=== PATIENT | female | born 1965 | race Caucasian/White ===

== ENCOUNTER 2017-09-22 13:37 | Inpatient (IN) ==
--- NOTE | 2017-09-22 14:16 | Emergency Department Note ---
START Narrative - START START: I examined this patient and my medical decision-making was reviewed with the Resident Physician. I agree with the documented findings, disposition and treatment plan as described except to the extent set forth below. 52-year-old female presents emergency room for left buttock wound check. Patient had a recent diagnosis of a left buttock abscess. She had this packed 2 days ago. Has been on clindamycin. Came today for wound check. States she still having high fevers up to 102. States she feels sick and does not feel well. She is having increasing pain to this left buttock area. [place] one hour ago she is also complaining of right facial numbness involving the right cheek region. She also states her tongue did not feel normal like it used to. She denies any arm or leg involvement. No vision changes. No previous strokes or CVAs or TIA. Patient will need to have this evaluated as well. Could be secondary to the infection that she is becoming systemic. We will check lab work. We did obtain a wound culture.
[2017-09-22] MEDS ORDERED: Vancomycin 1,000 MG in D5% in Water 250 ML IVPB ONE (14:18)
[2017-09-22] MEDS ORDERED: 0.9 % Sodium Chloride 1,000 ML IVC ONE (14:18)
[2017-09-22] MEDS ORDERED: Ondansetron 4 MG/2 ML VIAL IVP ONE (14:24)
[2017-09-22] MEDS ORDERED: *HR* HYDROmorphone (PF) 1 MG/ML SYRINGE IVP ONE (14:24)
[2017-09-22 14:33] LABS: Basophils # 0.1 K/mcL (0.0-0.2); Basophils % 0.3 %; Eosinophils # 0.1 K/mcL (0.0-0.6); Eosinophils % 0.3 %; Hematocrit 40.3 % (35.3-44.9); Hemoglobin 13.6 g/dL (11.5-15.4); Immature Granulocytes % 0.7 % (0-4); Lymphocytes # 2.5 K/mcL (0.6-4.6); Lymphocytes % 16.6 %; Mean Corpuscular HGB Conc 33.7 g/dL (31.6-35.5); Mean Corpuscular Volume 91.8 fL (83.0-100.0); Mean Platelet Volume 10.1 fL (9.4-12.4); Monocytes # 0.9 K/mcL (0.0-1.3); Monocytes % 5.8 %; Neutrophils # 11.6 K/mcL (1.6-8.9); Platelet Count 174 K/mcL (140-400); Red Blood Count 4.39 M/mcL (3.82-4.97); Red Cell Distribution Width 13.2 % (11.5-14.5); Segmented Neutrophils % 76.3 %
--- NOTE | 2017-09-22 14:37 | Emergency Department Note ---
Disposition Clinical Impression: Cellulitis and abscess of buttock Disposition: Admitted As Inpatient Wound/Laceration HPI - General Chief Complaint: ED Neuro Symptoms/Deficit Stated Complaint: Multiple complaints Time Seen by Provider: 09/22/17 13:50 Source: patient Mode of arrival: ambulatory Limitations: no limitations Nursing Notes Reviewed: Yes Vital Signs Reviewed: Yes - History of Present Illness HPI Narrative: 52-year-old female with complaint of an abscess, that has not healed despite antibiotics, she has been on clindamycin for about 5 days, and she is still has worsening pain, she states of abscess was packed in the emergency department of [facility] symptoms and she has had fevers, temperatures 101 at home, worsening pain, abscess is intact but still draining lots of fluid, causing her difficulty sitting down and doing daily activities, when she sits down she has 8 out of 10 pain. Patient also states that on her way in to be evaluated she had some transient paresthesias in her left face. Patient denies any focal weakness, slurred speech or gait difficulties Location: back, other (Left buttocks) 1 - Abscess Place: home Patient Tetanus UTD: Yes Mechanism: other Pain Severity: moderate Pain Scale: 7 Treatments prior to arrival: bandage, other (Incision and drainage and packing) - Related Data Home Medications Medication Instructions Recorded Confirmed DULoxetine [Cymbalta] 60 mg PO DAILY 05/23/16 09/22/17 Gabapentin [Neurontin] 800 mg PO QID 05/23/16 09/22/17 Lisinopril [Zestril] 40 mg PO DAILY 05/23/16 09/22/17 OxyCODONE Immed Rel [Roxicodone 5 10 mg PO Q6HR PRN 05/23/16 09/22/17 MG] TraZODone 200 mg PO HS 05/23/16 09/22/17 hydroCHLOROthiazide 25 mg PO DAILY 05/23/16 09/22/17 [Hydrochlorothiazide] Oxycodone Myristate [Xtampza ER] 18 mg PO BID 09/22/17 09/22/17 lamoTRIgine [Lamictal] 100 mg PO HS 09/22/17 09/22/17 Allergies Allergy/AdvReac Type Severity Reaction Status Date / Time No Known Allergies Allergy Verified 05/23/16 03:51 All systems ED: reviewed and negative except as stated. Review of Systems: As Per HPI Constitutional: Reports: fever, chills Eyes: Denies: eye pain, eye discharge ENT ED: Denies: ear pain, throat pain Cardiovascular: Denies: chest pain, palpitations Respiratory: Denies: cough, dyspnea Gastrointestinal: Denies: abdominal pain Genitourinary: Denies: urgency, dysuria Musculoskeletal: Denies: back pain Integumentary: Reports: as per HPI, rash, lesions Neurological: Denies: headache, weakness Psychiatric: Denies: anxiety Endocrine: Denies: fatigue Past Medical History - Past Medical History Attestation: Yes The following information was validated with the patient. Source: patient Medical history: Reports: non-contributory, hypertension Surgical history: Reports: other, hysterectomy Psychiatric history: Reports: anxiety - Social History Smoking Status: Current every day smoker Smokeless Tobacco Status: No Alcohol use: Reports: none Drug use: Reports: none Physical Exam - General Limitations: no limitations General appearance: alert, in no apparent distress - Head Head exam: atraumatic - Eye Eye exam: Present: normal appearance, PERRL - ENT ENT exam: normal exam - Neck Neck exam: Present: normal inspection - Chest Chest inspection: Present: normal inspection, symmetric chest wall rise - Respiratory Respiratory exam: Present: normal lung sounds bilaterally - Cardiovascular Cardiovascular exam: Present: regular rate, normal rhythm - Abdominal Exam Abdominal exam: Present: soft. Absent: Non-Tender Course Course Narrative: 52-year-old female with right buttocks abscess, this was expressed, she also has surrounding cellulitis and concern for worsening infection given that she failed outpatient clindamycin, the plan will be for likely admission for IV antibiotics to vancomycin IV, wound cultures and blood cultures sent - Reevaluation(s) Reevaluation #1: Patient with leukocytosis. Evidence of cellulitis and abscess, started empirically on clindamycin IV admitted to the hospital service Dr. Pantoja Vital Signs Temperature 99.1 F 09/22/17 13:47 Pulse Rate 81 09/22/17 13:47 Respiratory Rate 16 09/22/17 13:47 Blood Pressure 140/83 09/22/17 13:47 O2 Sat by Pulse Oximetry 98 09/22/17 13:47 Temperature 98.9 F 09/22/17 17:15 Pulse Rate 63 09/22/17 17:15 Respiratory Rate 14 09/22/17 17:15 Blood Pressure 122/72 09/22/17 17:15 O2 Sat by Pulse Oximetry 97 09/22/17 17:15 Oxygen Delivery Oxygen Delivery Room Air Wound/Laceration - Differential Diagnosis Differential Diagnosis: Likely: abscess - Medical Records Medical records reviewed: Yes I reviewed the patient's medical records. - Lab Data Lab results reviewed: Yes I reviewed the patient's lab results. Result diagrams: 09/22/17 14:27 09/22/17 14:27 Lab Results 09/22/17 09/22/17 09/22/17 Range/Units 14:00 14:27 14:27 WBC 15.3 H (4.3-11.1) K/mcL RBC 4.39 (3.82-4.97) M/mcL Hgb 13.6 (11.5-15.4) g/dL Hct 40.3 (35.3-44.9) % MCV 91.8 (83.0-100.0) fL MCH 31.0 (28.0-33.3) pg MCHC 33.7 (31.6-35.5) g/dL RDW 13.2 (11.5-14.5) % Plt Count 174 (140-400) K/mcL MPV 10.1 (9.4-12.4) fL Immature Gran % 0.7 (0-4) % Seg Neutrophils % 76.3 % Lymphocytes % 16.6 % Monocytes % 5.8 % Eosinophils % 0.3 % Basophils % 0.3 % Neutrophils # 11.6 H (1.6-8.9) K/mcL Lymphocytes # 2.5 (0.6-4.6) K/mcL Monocytes # 0.9 (0.0-1.3) K/mcL Eosinophils # 0.1 (0.0-0.6) K/mcL Basophils # 0.1 (0.0-0.2) K/mcL Sodium 136 (136-145) mEq/L Potassium 3.8 (3.5-5.1) mEq/L Chloride 104 (98-107) mEq/L Carbon Dioxide 29 (23-29) mEq/L BUN 12 (6-20) mg/dL Creatinine 0.67 (0.60-1.20) mg/dL Est GFR ( Amer) > 60 (> 60) Est GFR (Non-Af Amer) > 60 (> 60) BUN/Creatinine Ratio 18 (6-26) Glucose 105 (70-105) mg/dL POC Glucose 111 H (58-89) Calculated Osmolality 282 (280-300) Lactic Acid (0.5-2.2) mmol/L Calcium 9.0 (8.6-10.3) mg/dL 09/22/17 Range/Units 14:27 WBC (4.3-11.1) K/mcL RBC (3.82-4.97) M/mcL Hgb (11.5-15.4) g/dL Hct (35.3-44.9) % MCV (83.0-100.0) fL MCH (28.0-33.3) pg MCHC (31.6-35.5) g/dL RDW (11.5-14.5) % Plt Count (140-400) K/mcL MPV (9.4-12.4) fL Immature Gran % (0-4) % Seg Neutrophils % % Lymphocytes % % Monocytes % % Eosinophils % % Basophils % % Neutrophils # (1.6-8.9) K/mcL Lymphocytes # (0.6-4.6) K/mcL Monocytes # (0.0-1.3) K/mcL Eosinophils # (0.0-0.6) K/mcL Basophils # (0.0-0.2) K/mcL Sodium (136-145) mEq/L Potassium (3.5-5.1) mEq/L Chloride (98-107) mEq/L Carbon Dioxide (23-29) mEq/L BUN (6-20) mg/dL Creatinine (0.60-1.20) mg/dL Est GFR ( Amer) (> 60) Est GFR (Non-Af Amer) (> 60) BUN/Creatinine Ratio (6-26) Glucose (70-105) mg/dL POC Glucose (58-89) Calculated Osmolality (280-300) Lactic Acid 1.0 (0.5-2.2) mmol/L Calcium (8.6-10.3) mg/dL - Radiology Data Radiology results reviewed: Yes I reviewed the patient's radiology results. Head CT 09/22/17 14:17 IMPRESSION: No acute abnormality of the head. D/ / Tobi Avila MD / Tobi Avila MD Interpreting Provider: Tobi Avila MD
[2017-09-22 14:51] LABS: BUN/Creatinine Ratio 18 (6-26); Blood Urea Nitrogen 12 mg/dL (6-20); Carbon Dioxide 29 mEq/L (23-29); Chloride 104 mEq/L (98-107); Glucose 105 mg/dL (70-105); Osmolality,Calculated 282 (280-300); Potassium 3.8 mEq/L (3.5-5.1); Sodium 136 mEq/L (136-145); eGFR For African Americans > 60 (> 60); eGFR For Non-African Americans > 60 (> 60)
[2017-09-22] MEDS ORDERED: Ondansetron 4 MG/2 ML VIAL IVP PRN (18:04)
[2017-09-22] MEDS ORDERED: Ibuprofen 400 MG TABLET PO PRN (18:04)
[2017-09-22] MEDS ORDERED: Acetaminophen 325 MG TABLET PO PRN (18:04)
[2017-09-22] MEDS ORDERED: Naloxone 0.4 MG/ML INJ IVP PRN (18:04)
--- NOTE | 2017-09-22 18:49 | Internal Med History&Physical ---
Date of Encounter: 09/22/17 Time of Encounter: 17:30 Assessment and Plan (1) Cellulitis and abscess of buttock Current visit: Yes Status: Acute Acute cellulitis and abscess of the left buttock that pt. states was diagnosed two days ago at [facility]. Wound is painful to palpation and currently draining purulent fluid. Area looks cellulitic and erythematous. Pt. states she is currently sexually active and would like STD testing. Wound Care consult ordered with daily wound care. Surgery consult ordered and discussed w/Dr. Madsen for possible draining and I appreciate the consult. Blood cultures x2. Wound culture. Gonorrhea, chlamydia, and herpes testing ordered. IVPB vancomycin w/ pharmacy dosing and Zosyn 3.375 gm Q8 for infection coverage. Pt. discussed w/ Dr. Pantoja who is in agreement w/plan of care. Pt. is high risk for further infection and morbidity based on current sx, previous occurrences, current leukocytosis and draining abscess. Inpatient. (2) Right facial numbness Current visit: Yes Status: Acute Pt. reports acute right-sided facial numbness that started several hours ago. Pinpoint test reveals reduced feeling in right cheek down to right corner of mouth. Pt. states reduced feeling on right side of tongue. Denies hx of CVA, TIA , seizures, previous occurrence. CT of the head today shows no acute intracranial abnormality. No facial droop or focal deficits. No speech slurring or ataxia on exam. MRI of head/brain wo contrast to r/o infarct/ischemia. NIHSS modified scale. dysphagia screen. Neuro checks Q2HR. Consider neuro consult based on MRI results. NPO until dysphagia screen passed. (3) HTN (hypertension) Current visit: Yes Status: Chronic Hx of chronic HTN. Monitor pt. and VS. Continue patient's hydrochlorothiazide. Qualifiers: Hypertension type: essential hypertension Qualified Code(s): I10 - Essential (primary) hypertension (4) Anxiety Current visit: Yes Status: Chronic Hx of chronic anxiety. Continue pts. Cymbalta and Lamictal. (5) Chronic pain Current visit: Yes Status: Chronic Hx of chronic pain in feet, hips, and back. Pt. takes Xtampza, Neurontin, Roxycodone and trazodone and states she is seen at a pain clinic for medications. Urine tox screen ordered. Qualifiers: Chronic pain type: other chronic pain Qualified Code(s): G89.29 - Other chronic pain (6) Tobacco abuse Current visit: Yes Status: Chronic Hx of chronic tobacco abuse. Pt. reports smoking 1 PPD and has no current intent to quit d/t anxiety. (7) DVT prophylaxis Current visit: Yes Status: Acute Lovenox 40 mg 0600 for DVT prophylaxis. Monitor pt. for signs of bleeding. Internal Medicine - H&P: HPI Chief complaint: Sore on left buttock Admitted From: Emergency Dept Plans for Post Hospital Care: Home History of present illness: Ms. Butler is a 52 year old female with medical hx of HTN presents from the ED with chief complaint of painful sore on the left buttock that has been present for the past two days. Patient states that she was seen at [facility] in [place] two days ago. Pt. states that she has been running a fever since and that the wound has become more painful over the past day and has been draining thick fluid. Pt. states that she has had the same abscesses on her bilateral calves and left axilla previously. Pt reports she is sexually active with one person. Pt. reports right facial numbness for the past several hours primarily right cheek and right side of tongue and diarrhea. Pt. denies recent illness, chills, nausea, vomiting, chest pain, palpitations, changes in vision, dizziness, lightheadedness, abdominal pain, unusual bleeding, pre-syncope, or syncope. Past Med Surg Social Fam HX - Past Medical History Medical history: hypertension Psychiatric history: anxiety - Past Surgical History Surgical History: other, hysterectomy - Social History Smoking Status: Current every day smoker Packs per day: 1 PPD Smokeless Tobacco Status: No Alcohol use: none Drug use: none Current living situation: Home Activity Level: Independent ambulation Recent Out of Country Travel Within the Last 8 Weeks: No Exposure or Possible Exposure to Illness During Travel: No - Family History Father Race: Family Member Ethnicity: Non- Living Status: Age at : 63 Cause of : Cancer Hx Family Cardiac Disorders: Yes (Father PR in 50's) Hx Family Cancer: Yes (Lung, lymphoma) Mother Race: Family Member Ethnicity: Non- Living Status: Still Living Hx Family Medical Disorders: No Brother Race: Family Member Ethnicity: Non- Living Status: Still Living Hx Family Medical Disorders: No Sister Race: Family Member Ethnicity: Non- Living Status: Still Living Hx Family Medical Disorders: No Internal Medicine - H&P: Meds DULoxetine [Cymbalta] 60 mg PO DAILY 05/23/16 [History] Gabapentin [Neurontin] 800 mg PO QID 05/23/16 [History] Lisinopril [Zestril] 40 mg PO DAILY 05/23/16 [History] OxyCODONE Immed Rel [Roxicodone 5 MG] 10 mg PO Q6HR PRN 05/23/16 [History] TraZODone 200 mg PO HS 05/23/16 [History] hydroCHLOROthiazide [Hydrochlorothiazide] 25 mg PO DAILY 05/23/16 [History] Oxycodone Myristate [Xtampza ER] 18 mg PO BID 09/22/17 [History] lamoTRIgine [Lamictal] 100 mg PO HS 09/22/17 [History] 3 Allergy/AdvReac Type Severity Reaction Status Date / Time No Known Allergies Allergy Verified 05/23/16 03:51 All Systems PM: A 10-system review of systems was performed and is negative for pertinent findings except as documented above in the HPI. - Constitutional Constitutional: as per HPI, fever(s), no chills, no night sweats - EENT Eyes: no change in vision, no discharge, no pain, no photophobia Ears: no ear discharge, no ear pain, no tinnitus Nose, mouth and throat: no dysphagia, no nasal discharge, no neck pain, no sore throat - Breasts Breasts: as per HPI - Cardiovascular Cardiovascular ROS IM: no chest pain, no diaphoresis, no dyspnea, no lightheadedness, no palpitations, no syncope - Respiratory Respiratory: no cough, no dyspnea, no wheezing, no excessive phlegm production - Gastrointestinal Gastrointestinal: as per HPI, diarrhea, no abdominal pain, no hematemesis, no hematochezia, no melena, no nausea, no vomiting - Genitourinary Genitourinary: other (Cellulitic abscess of the left buttock), no change in urinary stream, no dysuria, no flank pain, no hematuria Menstruation: as per HPI, post hysterectomy - Musculoskeletal Musculoskeletal ROS IM: no numbness, no tingling - Integumentary Integumentary IM: sores (Abscess on left buttock), no rash, no unusual bruising - Neurological Neurological ROS: as per HPI, numbness (Right-sided facial numbness), no confusion, no convulsions, no focal weakness, no tingling, no tremor(s) - Psychiatric Psychiatric: as per HPI, anxiety - Endocrine Endocrine IM: as per HPI - Hematologic/Lymphatic Hematologic/Lymphatic: no easy bruising - Allergic/Immunologic Allergic/Immunologic: as per HPI - Constitutional Vitals: Temp Pulse Resp BP Pulse Ox 98.9 F 63 14 122/72 97 09/22/17 17:15 09/22/17 17:15 09/22/17 17:15 09/22/17 17:15 09/22/17 17:15 General appearance: Present: cooperative, mild distress (Pain in left buttock), A&O X 3, answers questions appropriately - Head Head exam: Present: atraumatic, normocephalic - Eye Eye exam: Present: PERRL, conjuntiva pink, sclera anicteric Pupils: Present: PERRL - ENT ENT exam: Present: normal exam - Neck Neck exam general surgery: Present: normal inspection, supple, trachea midline. Absent: lymphadenopathy - Respiratory Respiratory exam: Present: CTAB. Absent: accessory muscle use, rales, rhonchi, wheezes - Cardiovascular Cardiovascular exam: Present: RRR, +S1, +S2. Absent: diastolic murmur, gallop, rubs, systolic murmur - GI/Abdominal GI/Abdominal exam: Present: normal bowel sounds, soft, no peritoneal signs. Absent: distended, tenderness - Rectal Rectal exam: Present: tenderness (Left buttock region w/open wound w/purulent drainage) - External exam: Present: erythema (Mild erythema present in groin area. Pt. states she gets sores that come and go in this area.) - Extremities Exam Extremities exam: Present: warm, radial pulses palpable and symmetrical. Absent : calf tenderness, cyanotic, pedal edema - Back Exam Back exam: Present: normal inspection - Neurological Exam Neurological exam: Present: CN II-XII intact, oriented X3, no focal deficits. Absent: pronater drift, facial droop, speech deficit - Psychiatric Psychiatric exam: Present: anxious - Skin Skin exam: Present: dry, intact Internal Med - H&P Results - Labs CBC & Chem 7: 09/22/17 14:27 09/22/17 14:27 - Diagnostic Studies CT scan - head Additional comments: Impressions Head CT 09/22/17 14:17 IMPRESSION: No acute abnormality of the head. D/ / Tobi Avila MD / Tobi Avila MD Interpreting Provider: Tobi Avila MD
[2017-09-22] MEDS ORDERED: Piperacillin/Tazobactam 3.375 GM/200 ML BAG IVPB SCH (20:00)
[2017-09-22] MEDS: traZODone 50 MG TABLET PO SCH (20:44)
[2017-09-22] MEDS: Gabapentin 400 MG CAPSULE PO SCH (20:44)
[2017-09-22] MEDS: lamoTRIgine 100 MG TABLET PO SCH (20:45)
[2017-09-22] MEDS: Patient Taking Own Medication 1 EACH PO SCH (20:46)
[2017-09-22] MEDS: *HR* OxyCODONE Immed Rel 5 MG TABLET PO PRN (20:50)
[2017-09-22] MEDS: 0.9 % Sodium Chloride 1,000 ML IVC SCH (22:39)
[2017-09-23] MEDS ORDERED: Vancomycin 1,000 MG in D5% in Water 250 ML IVPB SCH (03:00)
[2017-09-23] MEDS: Vancomycin 1,000 MG in D5% in Water 250 ML IVPB SCH ×2 (04:10→15:16)
[2017-09-23] MEDS: *HR* Enoxaparin 40 MG/0.4 ML SYRINGE SQ SCH (06:28)
[2017-09-23 07:17] LABS: Basophils % 0.4 %; Eosinophils # 0.2 K/mcL (0.0-0.6); Eosinophils % 2.5 %; Hematocrit 36.3 % (35.3-44.9); Immature Granulocytes % 0.6 % (0-4); Lymphocytes # 2.2 K/mcL (0.6-4.6); Lymphocytes % 26.9 %; Mean Corpuscular HGB Conc 32.8 g/dL (31.6-35.5); Mean Corpuscular Hemoglobin 30.1 pg (28.0-33.3); Mean Corpuscular Volume 91.9 fL (83.0-100.0); Mean Platelet Volume 10.4 fL (9.4-12.4); Monocytes # 0.5 K/mcL (0.0-1.3); Neutrophils # 5.3 K/mcL (1.6-8.9); Platelet Count 185 K/mcL (140-400); Red Blood Count 3.95 M/mcL (3.82-4.97); Red Cell Distribution Width 13.2 % (11.5-14.5); Segmented Neutrophils % 63.6 %
[2017-09-23 07:32] LABS: Alanine Aminotransferase 8 Units/L (7-52); Albumin 3.1 g/dL (3.5-5.7); Alkaline Phosphatase 60 Units/L (34-104); Aspartate Amino Transferase 11 Units/L (13-39); BUN/Creatinine Ratio 15 (6-26); Bilirubin,Total 0.6 mg/dL (0.3-1.0); Blood Urea Nitrogen 10 mg/dL (6-20); Calcium 8.5 mg/dL (8.6-10.3); Carbon Dioxide 26 mEq/L (23-29); Chloride 110 mEq/L (98-107); Chol/HDL Ratio 5.6 (0-4.9); Cholesterol 118 mg/dL (< 200); Glucose 96 mg/dL (70-105); HDL Cholesterol 21 mg/dL (40-59); LDL Cholesterol,Calculated 77 mg/dL (0-99); Magnesium 2.1 mg/dL (1.6-2.6); Osmolality,Calculated 289 (280-300); Potassium 3.5 mEq/L (3.5-5.1); Sodium 140 mEq/L (136-145); Total Protein 6.1 g/dL (6.4-8.9); Triglycerides 102 mg/dL (< 150); eGFR For African Americans > 60 (> 60); eGFR For Non-African Americans > 60 (> 60)
[2017-09-23 07:40] LABS: Hemoglobin 11.9 g/dL (11.5-15.4)
[2017-09-23] MEDS: Gabapentin 400 MG CAPSULE PO SCH ×4 (09:45→21:37)
[2017-09-23] MEDS: hydroCHLOROthiazide 25 MG TABLET PO SCH (09:48)
[2017-09-23] MEDS: Lisinopril 20 MG TABLET PO SCH (09:48)
[2017-09-23] MEDS: Patient Taking Own Medication 1 EACH PO SCH (09:49)
[2017-09-23] MEDS: *HR* OxyCODONE Immed Rel 5 MG TABLET PO PRN ×3 (09:54→21:37)
[2017-09-23] MEDS: lamoTRIgine 100 MG TABLET PO SCH ×2 (09:54→13:44)
[2017-09-23] MEDS: Piperacillin/Tazobactam 3.375 GM/200 ML BAG IVPB SCH ×2 (10:02→18:47)
--- NOTE | 2017-09-23 11:26 | Internal Med Progress Note ---
Date of Encounter: 09/23/17 Time of Encounter: 08:30 - Assessment and plan (1) Tobacco abuse Current Visit: Yes Status: Chronic Assessment and plan: Patient was counseled. Nicotine patch (2) Cellulitis and abscess of buttock Current Visit: Yes Status: Acute Assessment and plan: Status post I&D. Follow up on cultures. Continue with vancomycin and Zosyn. Surgery has been consulted. Continue with pain control. (3) HTN (hypertension) Current Visit: Yes Status: Chronic Assessment and plan: Pressures stable on home medications which have been resumed. Qualifiers: Hypertension type: essential hypertension Qualified Code(s): I10 - Essential (primary) hypertension (4) Anxiety Current Visit: Yes Status: Chronic Assessment and plan: Continue Cymbalta and Lamictal (5) Right facial numbness Current Visit: Yes Status: Acute Assessment and plan: Results. MRI brain is negative. (6) Chronic pain Current Visit: Yes Status: Chronic Assessment and plan: Continue with home regimen. Follows up with the pain clinic. Qualifiers: Chronic pain type: other chronic pain Qualified Code(s): G89.29 - Other chronic pain (7) DVT prophylaxis Current Visit: Yes Status: Acute Assessment and plan: Lovenox - Subjective Interval history: Patient was admitted yesterday with Botox abscess that was drained in the ED. She has been afebrile. Pain is well controlled. She also has some facial numbness yesterday that has resolved. She had an MRI of brain that was unremarkable - Constitutional Vitals: Temp Pulse Resp BP Pulse Ox 97.9 F 73 18 113/67 95 09/23/17 10:50 09/23/17 10:50 09/23/17 10:50 09/23/17 10:50 09/23/17 10:50 General appearance: Present: cooperative, mild distress (Pain in left buttock), A&O X 3, answers questions appropriately Exam: GEN: NAD CVS: RRR. S1, S2, No m/r/g RESP: CTAB ABD: Soft, NT, ND, +BS EXT: No edema. 2+ DP. Left buttock with an area of swelling and surrounding erythema NEURO: Nonfocal Internal Medicine: Result - Labs CBC & Chem 7: 09/23/17 06:46 09/23/17 06:46 Labs: Short CBC 09/23/17 Range/Units 06:46 WBC 8.3 (4.3-11.1) K/mcL Hgb 11.9 D (11.5-15.4) g/dL Hct 36.3 (35.3-44.9) % Plt Count 185 (140-400) K/mcL Neutrophils # 5.3 (1.6-8.9) K/mcL BMP 09/23/17 06:46 Sodium 140 Potassium 3.5 Chloride 110 H Carbon Dioxide 26 BUN 10 Creatinine 0.67 Glucose 96 Calcium 8.5 L Liver Function 09/23/17 Range/Units 06:46 Total Bilirubin 0.6 (0.3-1.0) mg/dL AST 11 L (13-39) Units/L ALT 8 (7-52) Units/L Alkaline Phosphatase 60 (34-104) Units/L Albumin 3.1 L (3.5-5.7) g/dL - Impressions Impressions Brain MRI 09/22/17 18:49 IMPRESSION: No evidence of acute ischemic insult, acute intracranial hemorrhage, or mass lesion. Moderate cerebral white matter disease. D/ / Rafiq Ayala MD / Rafiq Ayala MD Interpreting Provider: Rafiq Ayala MD Consult Discharge Plan - Plan Referrals: Isai Jordan MD [Primary Care Provider] -
--- NOTE | 2017-09-23 12:55 | General Surgery Consult Note ---
<Sonia Prince - Last Filed: 09/23/17 14:06> Date of Encounter: 09/23/17 Time of Encounter: 06:35 Assessment and Plan (1) Cellulitis and abscess of buttock Current Visit: Yes Status: Acute Open Abscess on left buttock with purulent drainage. Induration and erythema around the wound. She had an I&D at [facility] on and was given clindamycin at discharge. She has had recurrent abscesses on various parts of her bod including back of legs and elbow. She is concerned with etiology of abscesses. Unknown etiology for recurrent abscesses. Denies drug use or sitting for long periods of time. She has a flow murmur concerning for valvular defect that may contribute. WBC count has decreased from 15.3 to 8.3 since admission Primary dressing of iodoform packing, with secondary dressing of gauze and tape continue current abx of vancomycin and zosyn echo ordered pain control with tylenol (2) Flow murmur Current Visit: Yes Status: Acute echocardiogram to r/o valvular pathology after detection of flow murmur. This may contribute to recurrent abscesses on skin. (3) Diarrhea Current Visit: Yes Status: Acute Stool c.diff test ordered to r/o C. diff related to recent Clindamycin therapy. She reported multiple episodes of loose diarrhea since yesterday. Qualifiers: Diarrhea type: unspecified type Qualified Code(s): R19.7 - Diarrhea, unspecified History of Present Illness Consult date: 09/23/17 Reason for consult: other (left buttock abscess) Requesting physician: Diallo Madsen History of present illness: Ms. Butler is a 52 yo sexually active female with a past medical history of HTN who presented to [facility] complaining of painful abscess in the left buttock. She had an I&D of current abscess at [facility] facility on and was discharged with clindamycin. She came back to the hospital because she started to develop fevers and chills with persistent pain. She states that she has previously suffered abscesses in several body areas including back of legs and elbow that have had to be drained. She demonstrates increased pain when pressure is placed on the wound. Once admitted she resisted packing of the wound due to unbearable pain. She denies spending a lot of time seated in a chair except when she knits. She denied nausea, vomiting, melena. She admitted to diarrhea for the past 2 days that has been runny. Past Med Surg Social Fam HX - Past Medical History Medical history: hypertension Psychiatric history: anxiety - Past Surgical History Surgical History: other, hysterectomy - Social History Smoking Status: Current every day smoker Packs per day: 1 PPD Smokeless Tobacco Status: No Alcohol use: none Drug use: none - Family History Mother Race: Family Member Ethnicity: Non- Living Status: Still Living Hx Family Medical Disorders: No Brother Race: Family Member Ethnicity: Non- Living Status: Still Living Hx Family Medical Disorders: No Sister Race: Family Member Ethnicity: Non- Living Status: Still Living Hx Family Medical Disorders: No Father Race: Family Member Ethnicity: Non- Living Status: Age at : 63 Cause of : Cancer Hx Family Cardiac Disorders: Yes (Father CT in 50's) Hx Family Respiratory Disorders: Yes (Patient's father had heart attacks in his 50s) Hx Family Cancer: Yes (Lung, lymphoma) Hx Family GI Disorders: No Hx Family Endocrine Disorder: No Hx Family Neuromuscular Disorders: No Hx Family Neurologic Disorders: No Hx Family HEENT Disorders: No Hx Family Autoimmune Disorders: No Medications and Allergies DULoxetine [Cymbalta] 60 mg PO DAILY 05/23/16 [History] Gabapentin [Neurontin] 800 mg PO QID 05/23/16 [History] Lisinopril [Zestril] 40 mg PO DAILY 05/23/16 [History] OxyCODONE Immed Rel [Roxicodone 5 MG] 10 mg PO Q6HR PRN 05/23/16 [History] TraZODone 200 mg PO HS 05/23/16 [History] hydroCHLOROthiazide [Hydrochlorothiazide] 25 mg PO DAILY 05/23/16 [History] Oxycodone Myristate [Xtampza ER] 18 mg PO BID 09/22/17 [History] lamoTRIgine [Lamictal] 100 mg PO HS 09/22/17 [History] 3 Allergy/AdvReac Type Severity Reaction Status Date / Time No Known Allergies Allergy Verified 05/23/16 03:51 Review of Systems All systems PM: A 10-system review of systems was performed and is negative for pertinent findings except as documented above in the HPI. - Constitutional chills, fever(s) - Cardiovascular no chest pain, no palpitations - Respiratory no cough, no dyspnea - Gastrointestinal diarrhea, no abdominal pain, no melena, no nausea, no vomiting - Integumentary erythema, non-healing lesions, other (indurated skin around abscess) General Surgery Exam Initial Vital Signs Temp Pulse Resp BP Pulse Ox 99.1 F 81 16 140/83 98 09/22/17 13:47 09/22/17 13:47 09/22/17 13:47 09/22/17 13:47 09/22/17 13:47 - General physical appearance well developed, well nourished - Respiratory normal expansion, normal respiratory effort, clear to auscultation - Cardiovascular Cardiovascular exam: Present: RRR, murmurs Additional Comments: Flow murmur identified upon auscultation - Abdomen Abdomen general surgery: Present: soft, non tender - Integumentary Integumentary general surgery: Present: other (draining abscess on left buttock) - Psychiatric Psychiatric general surgery: Present: oriented to person, oriented to place, oriented to time Exam Initial Vital Signs Temp Pulse Resp BP Pulse Ox 99.1 F 81 16 140/83 98 09/22/17 13:47 09/22/17 13:47 09/22/17 13:47 09/22/17 13:47 09/22/17 13:47 Results - Labs 09/23/17 06:46 09/23/17 06:46 Abnormal lab results Chloride 110 mEq/L (98-107) H 09/23/17 06:46 POC Glucose 111 (58-89) H 09/22/17 14:00 Calcium 8.5 mg/dL (8.6-10.3) L 09/23/17 06:46 AST 11 Units/L (13-39) L 09/23/17 06:46 Serum Total Protein 6.1 g/dL (6.4-8.9) L 09/23/17 06:46 Albumin 3.1 g/dL (3.5-5.7) L 09/23/17 06:46 Albumin/Globulin Ratio 1.0 (1.1-2.2) L 09/23/17 06:46 HDL Cholesterol 21 mg/dL (40-59) L 09/23/17 06:46 Cholesterol/HDL Ratio 5.6 (0-4.9) H 09/23/17 06:46 Diabetes panel 09/23/17 Range/Units 06:46 Sodium 140 (136-145) mEq/L Potassium 3.5 (3.5-5.1) mEq/L Chloride 110 H (98-107) mEq/L Carbon Dioxide 26 (23-29) mEq/L BUN 10 (6-20) mg/dL Creatinine 0.67 (0.60-1.20) mg/dL Glucose 96 (70-105) mg/dL Calcium 8.5 L (8.6-10.3) mg/dL AST 11 L (13-39) Units/L ALT 8 (7-52) Units/L Alkaline Phosphatase 60 (34-104) Units/L Albumin 3.1 L (3.5-5.7) g/dL Triglycerides 102 (< 150) mg/dL HDL Cholesterol 21 L (40-59) mg/dL Calcium panel 09/23/17 Range/Units 06:46 Calcium 8.5 L (8.6-10.3) mg/dL Albumin 3.1 L (3.5-5.7) g/dL Pituitary panel 09/23/17 Range/Units 06:46 Sodium 140 (136-145) mEq/L Potassium 3.5 (3.5-5.1) mEq/L Chloride 110 H (98-107) mEq/L Carbon Dioxide 26 (23-29) mEq/L BUN 10 (6-20) mg/dL Creatinine 0.67 (0.60-1.20) mg/dL Glucose 96 (70-105) mg/dL Calcium 8.5 L (8.6-10.3) mg/dL Adrenal panel 09/23/17 Range/Units 06:46 Sodium 140 (136-145) mEq/L Potassium 3.5 (3.5-5.1) mEq/L Chloride 110 H (98-107) mEq/L Carbon Dioxide 26 (23-29) mEq/L BUN 10 (6-20) mg/dL Creatinine 0.67 (0.60-1.20) mg/dL Glucose 96 (70-105) mg/dL Calcium 8.5 L (8.6-10.3) mg/dL Total Bilirubin 0.6 (0.3-1.0) mg/dL AST 11 L (13-39) Units/L ALT 8 (7-52) Units/L Alkaline Phosphatase 60 (34-104) Units/L Albumin 3.1 L (3.5-5.7) g/dL All other labs normal. Consult Discharge Plan - Plan Referrals: Isai Jordan MD [Primary Care Provider] - <Diallo Madsen - Last Filed: 09/23/17 17:57> Date of Encounter: 09/23/17 Review of Systems All systems PM: A 10-system review of systems was performed and is negative for pertinent findings except as documented above in the HPI. General Surgery Exam Initial Vital Signs Temp Pulse Resp BP Pulse Ox 99.1 F 81 16 140/83 98 09/22/17 13:47 09/22/17 13:47 09/22/17 13:47 09/22/17 13:47 09/22/17 13:47 Exam Initial Vital Signs Temp Pulse Resp BP Pulse Ox 99.1 F 81 16 140/83 98 09/22/17 13:47 09/22/17 13:47 09/22/17 13:47 09/22/17 13:47 09/22/17 13:47 Results - Labs 09/23/17 06:46 09/23/17 06:46 Abnormal lab results Chloride 110 mEq/L (98-107) H 09/23/17 06:46 POC Glucose 111 (58-89) H 09/22/17 14:00 Calcium 8.5 mg/dL (8.6-10.3) L 09/23/17 06:46 AST 11 Units/L (13-39) L 09/23/17 06:46 Serum Total Protein 6.1 g/dL (6.4-8.9) L 09/23/17 06:46 Albumin 3.1 g/dL (3.5-5.7) L 09/23/17 06:46 Albumin/Globulin Ratio 1.0 (1.1-2.2) L 09/23/17 06:46 HDL Cholesterol 21 mg/dL (40-59) L 09/23/17 06:46 Cholesterol/HDL Ratio 5.6 (0-4.9) H 09/23/17 06:46 Diabetes panel 09/23/17 Range/Units 06:46 Sodium 140 (136-145) mEq/L Potassium 3.5 (3.5-5.1) mEq/L Chloride 110 H (98-107) mEq/L Carbon Dioxide 26 (23-29) mEq/L BUN 10 (6-20) mg/dL Creatinine 0.67 (0.60-1.20) mg/dL Glucose 96 (70-105) mg/dL Calcium 8.5 L (8.6-10.3) mg/dL AST 11 L (13-39) Units/L ALT 8 (7-52) Units/L Alkaline Phosphatase 60 (34-104) Units/L Albumin 3.1 L (3.5-5.7) g/dL Triglycerides 102 (< 150) mg/dL HDL Cholesterol 21 L (40-59) mg/dL Calcium panel 09/23/17 Range/Units 06:46 Calcium 8.5 L (8.6-10.3) mg/dL Albumin 3.1 L (3.5-5.7) g/dL Pituitary panel 09/23/17 Range/Units 06:46 Sodium 140 (136-145) mEq/L Potassium 3.5 (3.5-5.1) mEq/L Chloride 110 H (98-107) mEq/L Carbon Dioxide 26 (23-29) mEq/L BUN 10 (6-20) mg/dL Creatinine 0.67 (0.60-1.20) mg/dL Glucose 96 (70-105) mg/dL Calcium 8.5 L (8.6-10.3) mg/dL Adrenal panel 09/23/17 Range/Units 06:46 Sodium 140 (136-145) mEq/L Potassium 3.5 (3.5-5.1) mEq/L Chloride 110 H (98-107) mEq/L Carbon Dioxide 26 (23-29) mEq/L BUN 10 (6-20) mg/dL Creatinine 0.67 (0.60-1.20) mg/dL Glucose 96 (70-105) mg/dL Calcium 8.5 L (8.6-10.3) mg/dL Total Bilirubin 0.6 (0.3-1.0) mg/dL AST 11 L (13-39) Units/L ALT 8 (7-52) Units/L Alkaline Phosphatase 60 (34-104) Units/L Albumin 3.1 L (3.5-5.7) g/dL All other labs normal. - Attending Attestation I examined this patient and my medical decision-making was reviewed with the Resident Physician. I agree with the documented findings, disposition and treatment plan as described except to the extent set forth below. The patient is seen and evaluated on morning rounds with a restaurant. The patient has had multiple recurrent abscesses. She does have a slight flow murmur across her left ventricular outflow tract. The vein is reasonable to obtain a 2-dimensional echo of the heart to rule out bacterial endocarditis. The abscess on the buttock is open and draining. This should be packed with iodoform. We will plan iodoform packing once a day with a secondary dressing of gauze and tape in conjunction with IV antibiotic therapy. Diallo Madsen MD FACS
[2017-09-23] MEDS: Nicotine 21 MG PATCH.TD24 TD SCH (15:15)
[2017-09-23] MEDS: 0.9 % Sodium Chloride 1,000 ML IVC SCH (15:15)
--- NOTE | 2017-09-23 17:23 | Event Note ---
Date of Encounter: 09/22/17 Time of Encounter: 17:23 case discussed in detail with DIRECTOR OF BRAND MARKETING. Agree with assessment and plan
[2017-09-23 17:49] LABS: Amphetamine Screen,Urine Negative ng/mL (Cutoff=1000); Barbiturate Screen,Urine Negative ng/mL (Cutoff=200); Benzodiazepines Screen,Urine Negative ng/mL (Cutoff=200); Cannabinoid Screen,Urine Negative ng/mL (Cutoff = 50); Cocaine Screen,Urine Negative ng/mL (Cutoff= 300); Opiate Screen,Urine Negative ng/mL (Cutoff=300); Phencyclidine Screen,Urine Negative ng/mL (Cutoff=25)
[2017-09-23] MEDS: traZODone 50 MG TABLET PO SCH (21:50)
[2017-09-24] MEDS: Piperacillin/Tazobactam 3.375 GM/200 ML BAG IVPB SCH ×2 (00:04→10:28)
[2017-09-24 03:19] LABS: Basophils % 0.6 %; Eosinophils # 0.2 K/mcL (0.0-0.6); Eosinophils % 3.5 %; Hematocrit 34.1 % (35.3-44.9); Hemoglobin 11.4 g/dL (11.5-15.4); Immature Granulocytes % 0.3 % (0-4); Lymphocytes # 3.1 K/mcL (0.6-4.6); Lymphocytes % 45.3 %; Mean Corpuscular HGB Conc 33.4 g/dL (31.6-35.5); Mean Corpuscular Hemoglobin 31.1 pg (28.0-33.3); Mean Corpuscular Volume 93.2 fL (83.0-100.0); Mean Platelet Volume 10.1 fL (9.4-12.4); Monocytes # 0.6 K/mcL (0.0-1.3); Monocytes % 8.3 %; Neutrophils # 2.9 K/mcL (1.6-8.9); Platelet Count 182 K/mcL (140-400); Red Blood Count 3.66 M/mcL (3.82-4.97); Red Cell Distribution Width 13.3 % (11.5-14.5)
[2017-09-24 03:53] LABS: Alanine Aminotransferase 8 Units/L (7-52); Albumin 2.9 g/dL (3.5-5.7); Alkaline Phosphatase 59 Units/L (34-104); Aspartate Amino Transferase 11 Units/L (13-39); BUN/Creatinine Ratio 16 (6-26); Bilirubin,Total 0.3 mg/dL (0.3-1.0); Blood Urea Nitrogen 12 mg/dL (6-20); Calcium 8.4 mg/dL (8.6-10.3); Carbon Dioxide 28 mEq/L (23-29); Chloride 108 mEq/L (98-107); Globulin 2.8 g/dL (2.4-3.5); Glucose 114 mg/dL (70-105); Osmolality,Calculated 289 (280-300); Potassium 3.5 mEq/L (3.5-5.1); Sodium 139 mEq/L (136-145); Total Protein 5.7 g/dL (6.4-8.9); eGFR For African Americans > 60 (> 60); eGFR For Non-African Americans > 60 (> 60)
[2017-09-24] MEDS: *HR* OxyCODONE Immed Rel 5 MG TABLET PO PRN ×2 (04:19→10:22)
[2017-09-24] MEDS: Vancomycin 1,000 MG in D5% in Water 250 ML IVPB SCH (04:20)
[2017-09-24] MEDS: *HR* Enoxaparin 40 MG/0.4 ML SYRINGE SQ SCH (06:18)
[2017-09-24] MEDS: hydroCHLOROthiazide 25 MG TABLET PO SCH (10:23)
[2017-09-24] MEDS: Gabapentin 400 MG CAPSULE PO SCH (10:23)
[2017-09-24] MEDS: lamoTRIgine 100 MG TABLET PO SCH (10:23)
[2017-09-24] MEDS: Lisinopril 20 MG TABLET PO SCH (10:25)
[2017-09-24] MEDS: Nicotine 21 MG PATCH.TD24 TD SCH (10:26)
[2017-09-24] MEDS: 0.9 % Sodium Chloride 1,000 ML IVC SCH (10:46)
--- NOTE | 2017-09-24 11:00 | General Surgery Progress Note ---
<RoyceJaclyn - Last Filed: 09/24/17 14:17> Date of Encounter: 09/24/17 Time of Encounter: 08:20 - Assessment and Plan (1) Cellulitis and abscess of buttock Status: Acute Left buttock open abscess. White count improved @ 6.9 today (15.3 on admission) ; afebrile overnight and since admission. Wound culture +MRSA, shows sensitivity to vancomycin. Currently receiving IV Zosyn and Vancomycin. Please refer to "Subjective" section of this progress note for further details of today 's encounter with patient. Plan: Antibiotic regimen, per primary medicine team, to treat MRSA cultured from wound (2) Flow murmur Status: Acute Echocardiogram 09/24/17--no significant valvular dysfunction Subjective Patient reports: still having pain Narrative: Patient seen and examined this morning at bedside with Dr. Madsen. Reportedly, patient refusing to allow open Lt buttock abscess to be packed by nursing. Patient was informed that refusing to allow medical staff to provide necessary wound care for proper wound healing would result in her being dismissed from surgical services. At this point, patient was very apologetic and verbalized that she understood and would allow the wound to be packed. Later this morning, I visited patient at bedside with Carley Bonds CNP to examine patient's Lt gluteal abscess which was found to be open and draining purulent material. Additionally, patient expressed concern about an area of her Rt buttock that was found to have a small area of cellulitis without fluctuance. Patient was made aware that on exam, the cavity secondary to Lt gluteal abscess could be explored further and packed. However Ms. Butler stated that she would not allow anything else be done to the hole to re-pack it. Despite further explanation of the need for re-packing and echoing Dr. Madsen' s conversation regarding dismissal from surgical services if patient continued to refuse care, patient stated that "you are not touching it and I am refusing. " The patient was then informed that surgical services would sign off her case as a result of patient's refusal of treatment. Patient also informed that further recommendations, wound care, hospital course, and discharge planning would come through the primary medical team--patient verbalized her understanding of this and of her being dismissed from [facility]. Patient's outpatient wound care f/u appointment with Dr. Madsen has been cancelled. Objective Vital Signs - Last 8 Hours Temp Pulse Resp BP Pulse Ox 09/24/17 03:28 98.3 F 59 16 115/69 96 Intake and Output 09/23/17 09/24/17 09/24/17 23:59 07:59 15:59 Intake Total 1820 / 1820 1570 / 1570 240 / 240 Output Total 350 / 350 100 / 100 Balance 1470 / 1470 1470 / 1470 240 / 240 Intake: IV Fluids 450 / 450 1450 / 1450 0.9 % Sodium Chloride 1,000 ML 1000 / 1000 @ 75 mls/hr IVC .[id number] [facility] Rx #:[id number] Zosyn Premix 3.375 GM/200 ML 3. 200 / 200 200 / 200 375 gm In 200 ml @ 50 mls/hr IVPB Q8HR [facility] Rx#:[id number] Vancocin 1,000 MG In Dextrose 5 250 / 250 250 / 250 % 250 ML @ 167 mls/hr IVPB Q12H [facility] Rx#:[id number] Oral 1370 / 1370 120 / 120 240 / 240 Output: Urine 350 / 350 100 / 100 Other: Meal Dinner Breakfast Percent of Meal Consumed 75% 100% # Voids 1 Weight 68.14 kg Patient Weight 09/24/17 23:59 Weight 68.14 kg - General physical appearance well developed, well nourished - Eyes normal ocular movement - Respiratory normal respiratory effort - Cardiovascular Addtional Comments: Patient refused cardiac auscultation, regular rate - Integumentary other (Lt buttock abscess: open, actively draining purulent material, small amount of surrounding cellulitis and fluctuance. Rt buttock: no fluctuance in small area of cellulitis) - Neurologic CN 2-12 grossly intact - Psychiatric oriented to time, oriented to person, oriented to place, speech is normal - Labs 09/24/17 03:09 09/24/17 03:09 Diabetes panel 09/24/17 Range/Units 03:09 Sodium 139 (136-145) mEq/L Potassium 3.5 (3.5-5.1) mEq/L Chloride 108 H (98-107) mEq/L Carbon Dioxide 28 (23-29) mEq/L BUN 12 (6-20) mg/dL Creatinine 0.73 (0.60-1.20) mg/dL Glucose 114 H (70-105) mg/dL Calcium 8.4 L (8.6-10.3) mg/dL AST 11 L (13-39) Units/L ALT 8 (7-52) Units/L Alkaline Phosphatase 59 (34-104) Units/L Albumin 2.9 L (3.5-5.7) g/dL Calcium panel 09/24/17 Range/Units 03:09 Calcium 8.4 L (8.6-10.3) mg/dL Albumin 2.9 L (3.5-5.7) g/dL Pituitary panel 09/24/17 Range/Units 03:09 Sodium 139 (136-145) mEq/L Potassium 3.5 (3.5-5.1) mEq/L Chloride 108 H (98-107) mEq/L Carbon Dioxide 28 (23-29) mEq/L BUN 12 (6-20) mg/dL Creatinine 0.73 (0.60-1.20) mg/dL Glucose 114 H (70-105) mg/dL Calcium 8.4 L (8.6-10.3) mg/dL Adrenal panel 09/24/17 Range/Units 03:09 Sodium 139 (136-145) mEq/L Potassium 3.5 (3.5-5.1) mEq/L Chloride 108 H (98-107) mEq/L Carbon Dioxide 28 (23-29) mEq/L BUN 12 (6-20) mg/dL Creatinine 0.73 (0.60-1.20) mg/dL Glucose 114 H (70-105) mg/dL Calcium 8.4 L (8.6-10.3) mg/dL Total Bilirubin 0.3 (0.3-1.0) mg/dL AST 11 L (13-39) Units/L ALT 8 (7-52) Units/L Alkaline Phosphatase 59 (34-104) Units/L Albumin 2.9 L (3.5-5.7) g/dL Consult Discharge Plan - Plan Instructions: Abscess (GEN) Referrals: Isai Jordan MD [Primary Care Provider] - Prescriptions: Sulfamethoxazole/Trimeth DS [Bactrim DS] 1 each PO BID #20 tablet <Diallo Madsen - Last Filed: 09/25/17 09:01> Date of Encounter: 01/08/18 Objective - Labs 09/24/17 03:09 09/24/17 03:09 - Attending Attestation I examined this patient and my medical decision-making was reviewed with the Resident Physician. I agree with the documented findings, disposition and treatment plan as described except to the extent set forth below. The patient is seen in evaluated with retinal morning rounds. The patient refused wound packing. I shared with her that it is absolutely essential that she comply with standard wound care practices. His not comply with standard wound care practices we will not be able to provide care for her. Diallo Madsen MD FACS
[2017-09-24 11:40] VITALS: BP 130/75
--- NOTE | 2017-09-24 11:56 | Event Note ---
Date of Encounter: 09/24/17 Time of Encounter: 11:25 This TREE CARE FOREMAN saw Ms Neville in conjunction with the surgical assistant (see surgical assistant note for full surgical progress note). Ms neville refused packing of her right gluteal abscess yesterday, per report was apologetic to Dr. Madsen and stated she would proceed with surgical wound care recommendations. Dr. Madsen reviewed with patient that if she elected not to follow surgical wound care recommendations that she would be dismissed from [facility]. Pt stated understanding and adherence at that time. Her right gluteal area has a small "hole" that is draining purluent material. There is a small amount of surround cellulitis and an area of fluctuance that appears amenable to further exploration of the cavity and packing. This is reviewed with the patient. She also has a small area of cellulitis and no fluctuance on the left gluteas. During patient care today, Ms Minaya stated, "You are not doing anything to that hole to repack it. You're not opening it back up or doing anything to pack it." This TREE CARE FOREMAN reinforced the pathopysiaology of her disease process, need for ATBX, and need for packing in the setting of drainage from the right gluteal site and confirmed MRSA infection, as well as reinforcing the dialogue with Dr. Madsen yesterday that if patient was not going to adhere to wound care recommendations , the patient would be dismissed from surgical services. Pt states, "I said you are not touching it and I am refusing." Pt informed that [facility] would be signing off of her case d/t refusal of treatment and that any further recommendations, wound care, hospital course, and d/c planning would either be through the primary team or another consulting service if indicated. Pt states understanding and dismissal from [facility]. Her previously scheduled wound care follow-up will be cancelled. Thank you for allowing us to participate in Ms Neville's care.
--- NOTE | 2017-09-24 12:15 | Discharge Summary ---
Date of Encounter: 09/24/17 Time of Encounter: 10:00 - Discharge Diagnosis (1) Tobacco abuse Priority: Primary Status: Chronic (2) Cellulitis and abscess of buttock Priority: Primary Status: Acute (3) HTN (hypertension) Priority: Secondary Status: Chronic Qualifiers: Hypertension type: essential hypertension Qualified Code(s): I10 - Essential (primary) hypertension (4) Anxiety Priority: Secondary Status: Chronic (5) Right facial numbness Priority: Primary Status: Acute (6) Chronic pain Priority: Secondary Status: Chronic Qualifiers: Chronic pain type: other chronic pain Qualified Code(s): G89.29 - Other chronic pain - Discharge Medications Prescriptions: Sulfamethoxazole/Trimeth DS [Bactrim DS] 1 each PO BID #20 tablet Home Medications: DULoxetine [Cymbalta] 60 mg PO DAILY 05/23/16 [History] Gabapentin [Neurontin] 800 mg PO QID 05/23/16 [History] Lisinopril [Zestril] 40 mg PO DAILY 05/23/16 [History] OxyCODONE Immed Rel [Roxicodone 5 MG] 10 mg PO Q6HR PRN 05/23/16 [History] TraZODone 200 mg PO HS 05/23/16 [History] hydroCHLOROthiazide [Hydrochlorothiazide] 25 mg PO DAILY 05/23/16 [History] Oxycodone Myristate [Xtampza ER] 18 mg PO BID 09/22/17 [History] lamoTRIgine [Lamictal] 100 mg PO HS 09/22/17 [History] Sulfamethoxazole/Trimeth DS [Bactrim DS] 1 each PO BID #20 tablet 09/24/17 [Rx] Allergies/Adverse Reactions: 3 Allergy/AdvReac Type Severity Reaction Status Date / Time No Known Allergies Allergy Verified 05/23/16 03:51 Procedures/tests Complete & Pending: Procedures Performed prior 72 hours Category Date Time Status MR head/brain wo con [MR] Stat MRI 09/22/17 18:49 Completed EV echocardiogram Routine Y 09/23/17 10:26 Completed Date of admission: 09/22/17 18:04 Primary care physician: Isai Jordan MD Consults: 09/22/17 18:09 Consult to Surgery [CONS] Routine Consulting Provider: Surgery [facility] Reason for Consult: Pt. has abscess on left buttock that appears cellulitic. She also reports previous and similar abscesses on lt and rt calves and left axilla. Wound is draining purulent fluid and is painful to the touch. Please assess for possible need for incising/drainage. Call Completed: Yes Consult to Wound Care [CONS] Routine Reason for Consult: Patient has abscess/wound on left buttock which is currently draining purulent fluid. Wound culture ordered. Please assess wound for daily care recommendations. Call Completed: No - Patient Status Disposition: Home, Self-Care Condition: Fair Overall status at discharge: patient is progressing back to baseline - Discharge Instructions Instructions: Abscess (GEN) Follow Up With: Isai Jordan MD [Primary Care Provider] - - Diet and Activity Activity: increase activity as tolerated Diet: regular diet Hospital course: Ms. Butler is a 52 year old female with medical hx of HTN presented to the ED with chief complaint of painful sore on the left buttock that has been present for the past two days. Patient states that she was seen at [facility] in [place] two days ago. She has been running a fever since and that the wound has become more painful over the past day and has been draining thick fluid. This time around when she presented to the ED she had her abscess drained. Cultures grew MRSA. She was initially put on IV antibiotics broad spectrum. This was switched to Bactrim at discharge. Had surgery see the patient with me in the recommended significant wound care and wound packing. The patient refused any attempt and efforts and would not cooperate with nursing staff regarding wound packing. She was explained the benefits of this by the surgery team. She continued to refuse. Surgery ended up signing off and they cancel any follow-up appointment she would not show any complaints. She was discharged eventually on Bactrim to finish 10 more days. She was stable for discharge on 09/24/2017. - Time Spent with Patient Total time spent providing and/or coordinating discharge services: Greater than 30 minutes - Constitutional Vitals: Temp Pulse Resp BP Pulse Ox 98.6 F 70 16 130/75 97 09/24/17 11:37 09/24/17 11:37 09/24/17 11:37 09/24/17 11:37 09/24/17 11:37 General appearance: Present: cooperative, mild distress (Pain in left buttock), A&O X 3, answers questions appropriately Exam: GEN: NAD CVS: RRR. S1, S2, No m/r/g RESP: CTAB ABD: Soft, NT, ND, +BS EXT: No edema. 2+ DP. Left buttock with an area of swelling and surrounding erythema NEURO: Nonfocal
[2017-09-24] MEDS ORDERED: Aminoglycoside Consult 1 EACH MC ONE (13:46)
== END 2017-09-24 13:47 | disposition home or self-care (01) | DRG 383 ==
LOC: 3ANU 13:37 → EMEROO 13:37 → 3ANU 16:57
PROVIDERS: ADMIT Hospitalist; ATTEND Student in an Organized Health Care Education/Training Program

== ENCOUNTER 2018-04-18 20:38 | Inpatient (IN) ==
--- NOTE | 2018-04-18 21:10 | Emergency Department Note ---
Disposition Clinical Impression: Abscess and cellulitis of gluteal region Chest pain Qualifiers: Chest pain type: unspecified Qualified Code(s): R07.9 - Chest pain, unspecified Disposition: Admitted As Inpatient Condition: Good Time of Disposition: 00:00 General Adult HPI - General Chief complaint: ED Fever Stated complaint: fever, sore on buttocks, CP Time Seen by Provider: 04/18/18 20:43 Source: patient, family Limitations: no limitations Nursing Notes Reviewed: Yes Vital Signs Reviewed: Yes - History of Present Illness HPI Narrative: 52-year-old female history of hypertension presents emergency department with multiple complaints. She reports a subjective fever over the past several days. She also has has a sore on her right buttock initially started as a pimple but has grown in size and has been draining today. The growth has increased over the past 3 to 4 days. She reports a similar history on her left by Dr. aguirre this year and was positive for MRSA. Denies any history of diabetes. Denies any recent injury or trauma to the area. She does report some constipation but denies any bloody stool or blacked tarry stools. She is also reported in the chest pain midsternal sharp in nature and only lasted a few minutes. She did have some associated shortness of breath associated with it. Currently she is chest pain free. It initially came about around noon. No prior history of cardiac ischemic disease. She was recently evaluated with a normal stress tests. Pain Scale: 7 - Related Data Home Medications Medication Instructions Recorded Confirmed DULoxetine [Cymbalta] 60 mg PO DAILY 05/23/16 04/18/18 Lisinopril [Zestril] 40 mg PO DAILY 05/23/16 04/18/18 TraZODone 200 mg PO HS 05/23/16 04/18/18 hydroCHLOROthiazide 25 mg PO DAILY 05/23/16 04/18/18 [Hydrochlorothiazide] lamoTRIgine [Lamictal] 100 mg PO HS 09/22/17 04/18/18 Sulfamethoxazole/Trimeth DS 1 tab PO BID 04/18/18 04/18/18 [Bactrim Ds] Allergies Allergy/AdvReac Type Severity Reaction Status Date / Time No Known Allergies Allergy Verified 04/18/18 22:41 All systems ED: reviewed and negative except as stated. Review of Systems: As Per HPI Constitutional: Reports: fever (Subjective). Denies: chills ENT ED: Denies: congestion Cardiovascular: Reports: chest pain. Denies: palpitations, dyspnea on exertion Respiratory: Reports: dyspnea. Denies: cough Gastrointestinal: Reports: constipation. Denies: abdominal pain, nausea, vomiting Genitourinary: Denies: urgency, dysuria Musculoskeletal: Denies: back pain Integumentary: Reports: lesions. Denies: rash Neurological: Denies: headache Past Medical History - Past Medical History Attestation: Yes The following information was validated with the patient. Source: patient Medical history: Reports: hypertension Surgical history: Reports: other, hysterectomy Psychiatric history: Reports: anxiety - Social History Smoking Status: Current every day smoker Smokeless Tobacco Status: No Alcohol use: Reports: none Drug use: Reports: none Physical Exam - General Limitations: no limitations General appearance: alert, anxious - Head Head exam: atraumatic, normocephalic, normal inspection - Eye Eye exam: Present: normal appearance, PERRL, EOMI - ENT ENT exam: normal exam, normal oropharynx, mucous membranes moist - Neck Neck exam: Present: normal inspection, full ROM, trachea midline - Chest Chest inspection: Present: normal inspection, symmetric chest wall rise. Absent : tenderness, rash - Respiratory Respiratory exam: Present: normal lung sounds bilaterally. Absent: respiratory distress, wheezes - Cardiovascular Cardiovascular exam: Present: regular rate, normal rhythm, normal heart sounds. Absent: systolic murmur, diastolic murmur - Abdominal Exam Abdominal exam: Present: soft, Non-Tender, normal bowel sounds. Absent: tenderness, distention, guarding, rebound, rigidity - Extremities Exam Extremities exam: Present: normal inspection, full ROM, normal capillary refill. Absent: tenderness, pedal edema - Back Exam Back exam: Present: normal inspection, full ROM, other (right gluteal abscess with fluctuance and significant erythema and induration tracking toward midline) . Absent: tenderness - Psychiatric Psychiatric exam: Present: normal affect, normal mood - Skin Skin exam: Present: warm, dry, intact, normal color, erythema - Expanded Skin Exam Type of lesion: Present: abscess Distribution: back, RLE Description: Present: tenderness, erythematous, fluctuant Course Course Narrative: Patient presents with multiple complaints including a subjective fever with of abscess to the right gluteus. She also reported chest pain that started around noon that is currently chest pain free. She did have some associated shortness of breath and nausea. Similar prior history with a negative workup. Her abscess is quite large with surrounding induration concerning for involvement and tracking into the rectal . Will check some basic labs including a lactate in the CT with contrast to further evaluate this abscess. Patient has a similar history to the left side that required admission September 2017. At that time her wound culture did grow positive for M RSA. Patients in agreement with this plan. - Reevaluation(s) Reevaluation #1: Her lactate is 1.7. She does not have leukocytosis. Troponin is less than 0.03. Her labs or otherwise unremarkable. The urine does. Slightly contaminated by has some ketones but not consistent with infection. The CT of the abdomen and pelvis shows a large fluid abscess collection. Given her history of M RSA will start her on vancomycin and have her admitted for IV antibiotics and possible surgical consultation. Patients in agreement with this plan. Impression is gluteal abscess and chest pain. Chest X-Ray 04/18/18 21:05 IMPRESSION: No acute process. D/ / Tyrone Shell MD / Tyrone Shell MD Interpreting Provider: Tyrone Shell MD Abdomen/Pelvis CT 04/18/18 21:27 IMPRESSION: 1. Right paramedian gluteal region subcutaneous infected fluid/abscess with surrounding cellulitis. The fluid is estimated at about 1.8 x 3.5 x 4.0 cm. Margins are difficult to outline this could be overestimated. 2. No acute intra-abdominal/intrapelvic process. 3. Cholelithiasis with stones up to 1.5 cm. D/ / Reza Lawrence MD / Reza Lawrence MD Interpreting Provider: Reza Lawrence MD - Consultations Consultation #1: Spoke with on-call hospitalist lukasz Piper to admit for chest pain and right gluteal abscess. No further orders at this time. Vancomycin ordered at this time. Patient is not septic appearing. Aspirin has been given. Time: 00:16 Vital Signs Temperature 98.8 F 04/18/18 20:39 Pulse Rate 87 04/18/18 20:39 Respiratory Rate 20 04/18/18 20:39 Blood Pressure 148/82 04/18/18 20:39 O2 Sat by Pulse Oximetry 97 04/18/18 20:39 Temperature 98.3 F 04/19/18 01:15 Pulse Rate 59 04/19/18 01:15 Respiratory Rate 15 04/19/18 01:15 Blood Pressure 113/64 04/19/18 01:15 O2 Sat by Pulse Oximetry 98 04/19/18 01:15 Oxygen Delivery Oxygen Delivery Room Air Medical Decision Making - MDM Narrative Medical decision making narrative: Patient was discussed with my attending physician who agrees with ED management and final disposition. They independently evaluated the patient. Please refer to their attestation to this encounter for additional information. This note was generated by [employer] voice recognition software and as a result grammatical or spelling errors may occur using this program. - Medical Records Medical records reviewed: Yes I reviewed the patient's medical records. - Lab Data Lab results reviewed: Yes I reviewed the patient's lab results. Result diagrams: 04/18/18 21:24 04/18/18 21:24 Lab Results 04/18/18 04/18/18 04/18/18 Range/Units 21:24 21:24 21:24 WBC 6.0 (4.3-11.1) K/mcL RBC 4.14 (3.82-4.97) M/mcL Hgb 12.9 (11.5-15.4) g/dL Hct 37.7 (35.3-44.9) % MCV 91.1 (83.0-100.0) fL MCH 31.2 (28.0-33.3) pg MCHC 34.2 (31.6-35.5) g/dL RDW 13.4 (11.5-14.5) % Plt Count 215 (140-400) K/mcL MPV 10.0 (9.4-12.4) fL Immature Gran % 0.2 (0-4) % Seg Neutrophils % 65.9 % Lymphocytes % 22.8 % Monocytes % 7.1 % Eosinophils % 3.5 % Basophils % 0.5 % Neutrophils # 4.0 (1.6-8.9) K/mcL Lymphocytes # 1.4 (0.6-4.6) K/mcL Monocytes # 0.4 (0.0-1.3) K/mcL Eosinophils # 0.2 (0.0-0.6) K/mcL Basophils # 0.0 (0.0-0.2) K/mcL Sodium 139 (136-145) mEq/L Potassium 3.2 L (3.5-5.1) mEq/L Chloride 106 (98-107) mEq/L Carbon Dioxide 26 (23-29) mEq/L BUN 9 (6-20) mg/dL Creatinine 0.66 (0.60-1.20) mg/dL Est GFR ( Amer) > 60 (> 60) Est GFR (Non-Af Amer) > 60 (> 60) BUN/Creatinine Ratio 14 (6-26) Glucose 128 H (70-105) mg/dL Calculated Osmolality 288 (280-300) Lactic Acid 1.7 (0.5-2.2) mmol/L Calcium 8.8 (8.6-10.3) mg/dL Troponin I < 0.03 (< 0.04) ng/mL Urine Color Urine Clarity Urine pH Ur Specific [place] Urine Protein Urine Glucose (UA) Urine Ketones Urine Blood Urine Nitrite Urine Bilirubin Urine Urobilinogen Ur Leukocyte Esterase Urine Microscopic RBC Urine Microscopic WBC (0-3) per hpf Ur Squamous Epith Cells Urine Bacteria (None-Few) per hpf Hyaline Casts Urine Yeast (None Seen) per hpf Ur Culture Indicated? Urine Test Specimen Rejected 04/18/18 04/18/18 04/18/18 Range/Units 21:37 21:37 21:37 WBC (4.3-11.1) K/mcL RBC (3.82-4.97) M/mcL Hgb (11.5-15.4) g/dL Hct (35.3-44.9) % MCV (83.0-100.0) fL MCH (28.0-33.3) pg MCHC (31.6-35.5) g/dL RDW (11.5-14.5) % Plt Count (140-400) K/mcL MPV (9.4-12.4) fL Immature Gran % (0-4) % Seg Neutrophils % % Lymphocytes % % Monocytes % % Eosinophils % % Basophils % % Neutrophils # (1.6-8.9) K/mcL Lymphocytes # (0.6-4.6) K/mcL Monocytes # (0.0-1.3) K/mcL Eosinophils # (0.0-0.6) K/mcL Basophils # (0.0-0.2) K/mcL Sodium (136-145) mEq/L Potassium (3.5-5.1) mEq/L Chloride (98-107) mEq/L Carbon Dioxide (23-29) mEq/L BUN (6-20) mg/dL Creatinine (0.60-1.20) mg/dL Est GFR ( Amer) (> 60) Est GFR (Non-Af Amer) (> 60) BUN/Creatinine Ratio (6-26) Glucose (70-105) mg/dL Calculated Osmolality (280-300) Lactic Acid (0.5-2.2) mmol/L Calcium (8.6-10.3) mg/dL Troponin I (< 0.04) ng/mL Urine Color TNP Urine Clarity TNP Urine pH TNP Ur Specific [place] TNP Urine Protein TNP Urine Glucose (UA) TNP Urine Ketones TNP Urine Blood TNP Urine Nitrite TNP Urine Bilirubin TNP Urine Urobilinogen TNP Ur Leukocyte Esterase TNP Urine Microscopic RBC TNP Urine Microscopic WBC (0-3) per hpf Ur Squamous Epith Cells TNP Urine Bacteria None Seen (None-Few) per hpf Hyaline Casts TNP Urine Yeast (None Seen) per hpf Ur Culture Indicated? TNP Urine Test TNP Specimen Rejected Labelling 04/18/18 04/18/18 Range/Units 21:45 21:45 WBC (4.3-11.1) K/mcL RBC (3.82-4.97) M/mcL Hgb (11.5-15.4) g/dL Hct (35.3-44.9) % MCV (83.0-100.0) fL MCH (28.0-33.3) pg MCHC (31.6-35.5) g/dL RDW (11.5-14.5) % Plt Count (140-400) K/mcL MPV (9.4-12.4) fL Immature Gran % (0-4) % Seg Neutrophils % % Lymphocytes % % Monocytes % % Eosinophils % % Basophils % % Neutrophils # (1.6-8.9) K/mcL Lymphocytes # (0.6-4.6) K/mcL Monocytes # (0.0-1.3) K/mcL Eosinophils # (0.0-0.6) K/mcL Basophils # (0.0-0.2) K/mcL Sodium (136-145) mEq/L Potassium (3.5-5.1) mEq/L Chloride (98-107) mEq/L Carbon Dioxide (23-29) mEq/L BUN (6-20) mg/dL Creatinine (0.60-1.20) mg/dL Est GFR ( Amer) (> 60) Est GFR (Non-Af Amer) (> 60) BUN/Creatinine Ratio (6-26) Glucose (70-105) mg/dL Calculated Osmolality (280-300) Lactic Acid (0.5-2.2) mmol/L Calcium (8.6-10.3) mg/dL Troponin I (< 0.04) ng/mL Urine Color Dark Yellow Urine Clarity Cloudy A Urine pH 6.5 Ur Specific [place] 1.026 H Urine Protein 30 H Urine Glucose (UA) Normal Urine Ketones Trace H Urine Blood Negative Urine Nitrite Negative Urine Bilirubin Moderate H Urine Urobilinogen >=8.0 H Ur Leukocyte Esterase Trace H Urine Microscopic RBC Urine Microscopic WBC 5-15 H (0-3) per hpf Ur Squamous Epith Cells Many H Urine Bacteria Moderate H (None-Few) per hpf Hyaline Casts None Seen Urine Yeast Few H (None Seen) per hpf Ur Culture Indicated? NO. A Urine Test Negative Specimen Rejected - Radiology Data Radiology results reviewed: Yes I reviewed the patient's radiology results. Chest X-Ray 04/18/18 21:05 IMPRESSION: No acute process. D/ / Tyrone Shell MD / Tyrone Shell MD Interpreting Provider: Tyrone Shell MD Abdomen/Pelvis CT 04/18/18 21:27 IMPRESSION: 1. Right paramedian gluteal region subcutaneous infected fluid/abscess with surrounding cellulitis. The fluid is estimated at about 1.8 x 3.5 x 4.0 cm. Margins are difficult to outline this could be overestimated. 2. No acute intra-abdominal/intrapelvic process. 3. Cholelithiasis with stones up to 1.5 cm. D/ / Reza Lawrence MD / Reza Lawrence MD Interpreting Provider: Reza Lawrence MD - EKG Data EKG #1 EKG attestation: Yes I reviewed and interpreted this EKG. EKG results narrative: EKG performed 2051 normal sinus rhythm 75 beats per minute, normal axis, poor R wave progression, no ST elevation or depression, no T-wave inversion, intervals within normal limits. No old EKG available for comparison at this time. No acute ischemic changes. Attestation Statement - Attestation Attestation: I examined this patient and my medical decision-making was reviewed with the Resident Physician, Dr. Keys. I agree with the documented findings, disposition and treatment plan as described except to the extent set forth below. Patient is a 52-year-old white female who presents to emergency permit today with complaints of a one-week history of gradually worsening right gluteal abscess with surrounding cellulitis associated with some subjective fevers and chills. Patient has had similar abscess to the left gluteal area in the past she was MRSA positive by wound culture. Patient also complains of some chest discomfort that she was experiencing at home prior to arrival at rest stating it lasted minutes and then spontaneously resolved. Patient denies any form of chest pain pressure or heaviness at this time in the emergency department. Patient patient was admitted in the past for chest pain and underwent stress testing which was within normal limits. With patient's physical exam findings as documented. Vital signs are stable. Patient is in no acute distress. Patient received pain medication, laboratory evaluation including cultures was obtained as well as chest x-ray and CT abdomen and pelvis with contrast for further evaluation of abscess. Patient's labs are within normal limits. Imaging shows a large right gluteal abscess margins difficult to evaluate. We have initiated Vanco IV. Patient's vital signs remained stable, lactate is normal. White count is normal. Troponin is negative, EKG shows no acute ischemic changes. Patient remains chest pain-free at this time but did receive aspirin therapy. Patient will be admitted for further evaluation of chest pain as well as right gluteal abscess and cellulitis. Case was discussed with hospitalist who accepted patient for admission for further evaluation and management.
[2018-04-18] MEDS ORDERED: Isovue-370 500 ML INFUS..BTL IV ONE (21:27)
[2018-04-18 21:45] LABS: Basophils % 0.5 %; Eosinophils # 0.2 K/mcL (0.0-0.6); Eosinophils % 3.5 %; Hematocrit 37.7 % (35.3-44.9); Hemoglobin 12.9 g/dL (11.5-15.4); Immature Granulocytes % 0.2 % (0-4); Lymphocytes # 1.4 K/mcL (0.6-4.6); Lymphocytes % 22.8 %; Mean Corpuscular HGB Conc 34.2 g/dL (31.6-35.5); Mean Corpuscular Hemoglobin 31.2 pg (28.0-33.3); Mean Corpuscular Volume 91.1 fL (83.0-100.0); Monocytes # 0.4 K/mcL (0.0-1.3); Monocytes % 7.1 %; Platelet Count 215 K/mcL (140-400); Red Blood Count 4.14 M/mcL (3.82-4.97); Red Cell Distribution Width 13.4 % (11.5-14.5); Segmented Neutrophils % 65.9 %
[2018-04-18 21:46] LABS: Bacteria,Urine None Seen per hpf (None-Few)
[2018-04-18 21:56] LABS: Troponin I < 0.03 ng/mL (< 0.04)
[2018-04-18 21:59] LABS: BUN/Creatinine Ratio 14 (6-26); Blood Urea Nitrogen 9 mg/dL (6-20); Calcium 8.8 mg/dL (8.6-10.3); Carbon Dioxide 26 mEq/L (23-29); Chloride 106 mEq/L (98-107); Glucose 128 mg/dL (70-105); Osmolality,Calculated 288 (280-300); Potassium 3.2 mEq/L (3.5-5.1); Sodium 139 mEq/L (136-145); eGFR For Non-African Americans > 60 (> 60)
[2018-04-18 22:10] LABS: Bilirubin,Urine Moderate (Negative); Blood,Urine Negative (Negative); Clarity,Urine Cloudy (Clear); Color,Urine Dark Yellow (Yellow); Glucose,Urine (UA) Normal (Normal); Ketones,Urine Trace mg/dL (Negative); Leukocyte Esterase,Urine Trace (Negative); Nitrite,Urine Negative (Negative); PH,Urine 6.5 pH Units (5.0-8.0); Protein,Urine 30 mg/dL (Neg-Trace); Specific Gravity,Urine 1.026 (1.010-1.025); Urobilinogen,Urine >=8.0 mg/dL (Normal)
[2018-04-18 22:12] LABS: Bacteria,Urine Moderate per hpf (None-Few); Hyaline Casts,Urine None Seen per lpf (None-Few); Squamous Epithelial Cell,Urine Many per lpf (None-Few)
[2018-04-18] MEDS ORDERED: *HR* OxyCODONE/APAP 5/325 TABLET PO ONE (22:28)
[2018-04-18 22:29] LABS: Yeast,Urine Few per hpf (None Seen)
[2018-04-18] MEDS ORDERED: Aspirin 81 MG TAB.CHEW PO STA (23:44)
[2018-04-19] MEDS ORDERED: 0.9 % Sodium Chloride 1,000 ML IVC ONE (00:20)
[2018-04-19] MEDS ORDERED: Potassium Chloride Elixir 20 MEQ/15 ML UDC PO ONE (00:39)
[2018-04-19] MEDS ORDERED: Naloxone 0.4 MG/ML INJ IVP PRN (00:41)
[2018-04-19] MEDS ORDERED: Ringers Solution, Lactated 1,000 ML IVC SCH (00:45)
[2018-04-19] MEDS ORDERED: lamoTRIgine 100 MG TABLET PO SCH (00:45)
[2018-04-19] MEDS ORDERED: Ketorolac 30 MG/ML VIAL IVP ONE (01:41)
--- NOTE | 2018-04-19 01:41 | Internal Med History&Physical ---
Date of Encounter: 04/19/18 Time of Encounter: 01:36 Internal Medicine - H&P: HPI Chief complaint: gluteal abscess Admitted From: Home Plans for Post Hospital Care: Home History of present illness: Ms. Christianson is a 52 year old female who reports a history of hypertension and depression and has suffered multiple skin and soft tissue abscesses in the past last admitted in October 2017 for an MRSA left gluteal abscess that required incision and drainage who presents now complaining of 3 days of worsening right gluteal swelling that started off as a small pimple that she did not pop however progressed in size with significant redness, swelling and exquisite pain and ultimately opening up and ulceration from which she has been having incessant bleeding and drainage. He has been having subjective fever and chills as well as generalized malaise. She denies other symptoms such as chest pain, abdominal pain, diarrhea but she has felt nauseated. In the ER she was seen to have normal vital signs and no leukocytosis however physical exam and CT imaging of the affected area showed a large left gluteal abscess. She was started on IV vancomycin with blood cultures obtained prior. She denies any trauma to the area or puncture injuries of recent. She does not know why she frequently has the skin and soft tissue infections and states that no one else at home suffers from these. She denies being a diabetic. She denies intravenous drug use. Past Med Surg Social Fam HX - Past Medical History Medical history: hypertension Psychiatric history: anxiety - Past Surgical History Surgical History: other, hysterectomy Additional surgical history: 3 foot surgeries - Social History Smoking Status: Current every day smoker Smokeless Tobacco Status: No Alcohol use: none Drug use: none - Family History Mother Family Member Ethnicity: Non- Living Status: Still Living Brother Family Member Ethnicity: Non- Living Status: Still Living Sister Family Member Ethnicity: Non- Living Status: Still Living Father Family Member Ethnicity: Non- Living Status: Hx Family Cardiac Disorders: Yes (Father VT in 50's) Hx Family Respiratory Disorders: Yes (Patient's father had heart attacks in his 50s) Hx Family Cancer: Yes (Lung, lymphoma) Hx Family GI Disorders: No Hx Family Endocrine Disorder: No Hx Family Neuromuscular Disorders: No Hx Family Neurologic Disorders: No Hx Family HEENT Disorders: No Hx Family Autoimmune Disorders: No Internal Medicine - H&P: Meds DULoxetine [Cymbalta] 60 mg PO DAILY 05/23/16 [History] Lisinopril [Zestril] 40 mg PO DAILY 05/23/16 [History] TraZODone 200 mg PO HS 05/23/16 [History] hydroCHLOROthiazide [Hydrochlorothiazide] 25 mg PO DAILY 05/23/16 [History] lamoTRIgine [Lamictal] 100 mg PO HS 09/22/17 [History] Sulfamethoxazole/Trimeth DS [Bactrim Ds] 1 tab PO BID 04/18/18 [History] 3 Allergy/AdvReac Type Severity Reaction Status Date / Time No Known Allergies Allergy Verified 04/18/18 22:41 All Systems PM: A 10-system review of systems was performed and is negative for pertinent findings except as documented above in the HPI. - Constitutional Vitals: Temp Pulse Resp BP Pulse Ox 98.3 F 59 15 113/64 98 04/19/18 01:15 04/19/18 01:15 04/19/18 01:15 04/19/18 01:15 04/19/18 01:15 Exam: Vitals: Reviewed General: Well-developed white female lying in bed with antalgic posturing Skin: Large circumferential area of erythema of approximately 7 cm over her left gluteus with central ulceration draining yellowish bloody fluid, circumferentially tender to palpation exquisitely with firmness and no fluctuance detected. No foul smell. HEENT: Moist mucous membranes. No conjunctivae pallor. Neck: No lymphadenopathy. No JVD. Chest: Normal thoracic expansion. Normal breath sounds. Clear to auscultation. Heart: Normal S1 & S2; rhythmic. No rubs or murmurs. Abdomen: Non-distended, soft and non-tender to palpation. Extremities: Right foot in a cast and left foot with hallux valgus. Neurological: Awake, alert and oriented to person, place and time. No focal deficits. Psych: Affect appropriate and coherent speech. Internal Med - H&P Results - Labs CBC & Chem 7: 04/18/18 21:24 04/18/18 21:24 - Assessment and plan (1) Cellulitis and abscess of buttock Current Visit: No Status: Acute Assessment and plan: Unclear etiology of so many recurrences. Known to have had MRSA infection in the past. -We will continue IV vancomycin. -Given the significant inflammatory signs and multiple hospitalizations will broaden coverage with PIP-Tazo empirically. -Obtain A1c to rule out diabetes. -Consult surgery in the morning -IV fluids (2) Hypokalemia Current Visit: Yes Status: Acute Assessment and plan: We will replete with 1 dose of KCl and recheck BMP in the morning. (3) Anxiety Current Visit: Yes Status: Chronic Assessment and plan: Continue anxiolytics and antidepressants. (4) HTN (hypertension) Current Visit: Yes Status: Chronic Assessment and plan: We will resume home medication lisinopril daily. Qualifiers: Hypertension type: essential hypertension Qualified Code(s): I10 - Essential (primary) hypertension (5) Tobacco dependence Current Visit: Yes Status: Acute Assessment and plan: Counseling and education was given. (6) DVT prophylaxis Current Visit: No Status: Acute Assessment and plan: Subcutaneous heparin ordered - Time Spent With Patient Total time spent is greater than 50% in coordination of care (as documented) at patient's floor/unit and/or counseling patient: 25 - 35 minutes
[2018-04-19] MEDS ORDERED: *HR* OxyCODONE/APAP 10/325 TABLET PO PRN (01:42)
[2018-04-19] MEDS: traZODone 50 MG TABLET PO SCH ×2 (01:59→20:18)
[2018-04-19] MEDS: Piperacillin/Tazobactam 3.375 GM in 0.9 % Sodium Chloride Mini Bag 100 ML IVPB SCH ×4 (02:00→23:53)
[2018-04-19] MEDS: 0.9 % Sodium Chloride 1,000 ML IVC SCH ×3 (02:41→20:19)
[2018-04-19 04:45] LABS: Basophils % 0.6 %; Eosinophils # 0.2 K/mcL (0.0-0.6); Eosinophils % 4.5 %; Hematocrit 33.3 % (35.3-44.9); Immature Granulocytes % 0.2 % (0-4); Lymphocytes % 40.2 %; Mean Corpuscular HGB Conc 33.6 g/dL (31.6-35.5); Mean Corpuscular Hemoglobin 30.6 pg (28.0-33.3); Mean Platelet Volume 10.1 fL (9.4-12.4); Monocytes # 0.5 K/mcL (0.0-1.3); Monocytes % 9.2 %; Neutrophils # 2.2 K/mcL (1.6-8.9); Platelet Count 207 K/mcL (140-400); Red Blood Count 3.66 M/mcL (3.82-4.97); Red Cell Distribution Width 13.7 % (11.5-14.5); Segmented Neutrophils % 45.3 %
[2018-04-19 04:54] LABS: Hemoglobin 11.2 g/dL (11.5-15.4)
[2018-04-19 05:01] LABS: INR 1.1; Prothrombin Time 12.4 Seconds (9.4-12.1)
[2018-04-19 05:03] LABS: Activated Partial Thrombo Time 38.9 Seconds (26.0-36.0)
[2018-04-19 05:08] LABS: BUN/Creatinine Ratio 12 (6-26); Blood Urea Nitrogen 7 mg/dL (6-20); Calcium 8.2 mg/dL (8.6-10.3); Carbon Dioxide 26 mEq/L (23-29); Chloride 112 mEq/L (98-107); Glucose 94 mg/dL (70-105); Osmolality,Calculated 290 (280-300); Potassium 3.9 mEq/L (3.5-5.1); Sodium 141 mEq/L (136-145); eGFR For Non-African Americans > 60 (> 60)
[2018-04-19 07:37] LABS: Estimated Average Glucose 105 mg/dl; Hemoglobin A1C 5.3 %
[2018-04-19] MEDS: lamoTRIgine 100 MG TABLET PO SCH (08:34)
[2018-04-19] MEDS: Lisinopril 20 MG TABLET PO SCH (08:34)
--- NOTE | 2018-04-19 11:09 | Internal Med Progress Note ---
Hospitalist Progress Note - Encounter Date of Encounter: 04/19/18 Time of Encounter: 11:07 - Subjective Interval History: Seen and examined at bedside. Patient is new to me, information obtained from chart review and patient report. She is complaining of 10 out of 10 pain from left buttocks wound. Pain medicine is helping some is still having significant pain. Feels like she has had a fever overnight. No chest pain or shortness of breath. - Exam Vitals: Temp Pulse Resp BP Pulse Ox 97.7 F 53 15 107/66 94 04/19/18 06:35 04/19/18 06:35 04/19/18 06:35 04/19/18 06:35 04/19/18 06:35 Exam: Vitals: Reviewed General: Well-developed white female lying in bed Skin: Large circumferential area of erythema of approximately 7 cm over her left gluteus with central ulceration draining yellowish bloody fluid, circumferentially tender to palpation exquisitely with firmness and no fluctuance detected. No foul odor. HEENT: Moist mucous membranes. No conjunctivae pallor. Neck: No lymphadenopathy. No JVD. Chest: Normal thoracic expansion. Normal breath sounds. Clear to auscultation. Heart: Normal S1 & S2; rhythmic. No rubs or murmurs. Abdomen: Non-distended, soft and non-tender to palpation. Extremities: Right foot in a cast and left foot with hallux valgus. Neurological: Awake, alert and oriented to person, place and time. No focal deficits. Psych: Affect appropriate and coherent speech. - Assessment and Plan (1) Cellulitis and abscess of buttock Current Visit: Yes Status: Acute Assessment and Plan: recurrent; patient reported multiple abscesses to bilateral buttocks over the past 2 years. Presented with right buttock pain and fevers. ABD/pelvis CT Right paramedian gluteal region subcutaneous infected fluid/abscess with surrounding cellulitis. No elevated WBC, lactic acid normal. Unclear etiology of so many recurrences. Noted to have MRSA in the past. Cont IV vanco and zosyn. General surgery consult (2) HTN (hypertension) Current Visit: Yes Status: Chronic Assessment and Plan: per hx. BP controlled. Cont home BP medication. Monitor BP and titrate PRN (3) Abnormal urinalysis Current Visit: Yes Status: Acute Assessment and Plan: UA concerning for UTI. Continue ceftriaxone. Follow culture and narrow ATB accordingly. (4) Chronic pain Current Visit: No Status: Chronic Assessment and Plan: per hx. Use to follow with pain management but was fired as she was unable to make her most recent appointment. Will look into new pain management referral with Cristina. (5) Tobacco dependence Current Visit: Yes Status: Acute Assessment and Plan: cessation advised DVT Prophylaxis: heparin - Time Spent with Patient Total time spent is greater than 50% in coordination of care (as documented) at patient's floor/unit and/or counseling patient: 25 - 35 minutes Plan of Care Discussed with: patient Internal Medicine: Result - Labs CBC & Chem 7: 04/19/18 04:23 04/19/18 04:23 Labs: Short CBC 04/19/18 Range/Units 04:23 WBC 4.9 (4.3-11.1) K/mcL Hgb 11.2 L D (11.5-15.4) g/dL Hct 33.3 L (35.3-44.9) % Plt Count 207 (140-400) K/mcL Neutrophils # 2.2 (1.6-8.9) K/mcL BMP 04/19/18 04:23 Sodium 141 Potassium 3.9 Chloride 112 H Carbon Dioxide 26 BUN 7 Creatinine 0.58 L Glucose 94 Calcium 8.2 L - ABG Interpretation ABG results: PT/INR, D-dimer PT 12.4 Seconds (9.4-12.1) H 04/19/18 04:23 Consult Discharge Plan - Plan Referrals: NONE,PCP [Primary Care Provider] - (2) HTN (hypertension) Qualifiers: Hypertension type: essential hypertension Qualified Code(s): I10 - Essential (primary) hypertension (4) Chronic pain Qualifiers: Chronic pain type: other chronic pain Qualified Code(s): G89.29 - Other chronic pain
[2018-04-19] MEDS: *HR* OxyCODONE/APAP 10/325 TABLET PO PRN ×2 (12:42→17:26)
--- NOTE | 2018-04-19 12:47 | General Surgery Consult Note ---
<Carley Bonds - Last Filed: 04/19/18 13:44> Date of Encounter: 04/19/18 Time of Encounter: 12:47 Assessment and Plan (1) Abscess, gluteal, right Current Visit: Yes Status: Acute Per CT on 04/18/18 (detailed below) she has an abscess on the right gluteus. Pt with aprox 9cm diameter area on the right buttock with erythema and induration noted; small area aprox 2-3 cm of fluctuance noted. There is a moderate amount of pink drainage on the bed and gown before procedure started. I&D at bedside completed. Small amount of purulent material retrieved (see procedure note) Of note, during procedure patient was well anesthetize and stated she could feel nothing, however after the linear incision was made and loculations were broken, the patient did have some discomfort in the deep tissue. He did review with her that we were unable to anesthetize this area given the location. She did attempt out of discomfort to strike this provider's arm/hand away and she was reminded to please refrain from doing this given the use of sharp instruments. She was offered to abort procedure d/t to discomfort, but she inclined to complete the procedure. Plan: Bedside I&D completed. May reinforce outter dressing today. Beginning 04/20/2018 Daily wound care: Remove dressing and packing. Pack with 1/ 4 iodoform gauze 04/20-01/2018, and then switch to 1/4 plain packing. Cover with a dry dressing, tape to secure (dressing supplies RX has been transmitted to patient pharmacy). Cultures pending ATBX per primary team Pt's significant other chose to remain at bedside for the procedure and states he will do packing at home. Surgery will sign off at this time. Thank you for allowing us to participate in Ms Christianson's care. 1. Right paramedian gluteal region subcutaneous infected fluid/abscess with surrounding cellulitis. The fluid is estimated at about 1.8 x 3.5 x 4.0 cm. Margins are difficult to outline this could be overestimated. History of Present Illness Consult date: 04/19/18 Reason for consult: wound care Requesting physician: Jina Bridges (Dr. David Mata) History of present illness: Bhumika is a 52-year-old female who has a PMH of HTN, tobacco dependance , and anxiety, a PSH of hysterectomy, foot surgery, and multiple I&Ds. presented on 04/18/2018 with complaints of right buttock pain, chest pain, and fever. She was noted to have an area on the right gluteus consistent with an abscess. Patient states she has a history of multiple recurrence of abscess in various areas including her bilateral buttocks and lower extremities and her most recent one was 2 years ago. She denies a diabetic history or IDVU history. She reports her last tetnus was "within the last 10 years." She states the area started approximately 3 to 4 days ago as a "pimple on my butt," but has since progressed in size and discomfort. She reports copious amounts of drainage. She endorses fever at home but cannot recall her Tmax. She denies any further areas of concern or discomfort related to the possible abscess. She states her pain is 7/10 and in the area of the right buttock. She denies headache, dizziness, abdominal pain, n/v, urinary s/s, or feeling of weakness. Surgery has been asked to evaluate this patient for recommendations regarding abscess. Past Med Surg Social Fam HX - Past Medical History Source: patient Medical history: hypertension Psychiatric history: anxiety - Past Surgical History Surgical History: other, hysterectomy Additional surgical history: 3 foot surgeries - Social History Smoking Status: Current every day smoker Smokeless Tobacco Status: No Alcohol use: none Drug use: none - Family History Mother Family Member Ethnicity: Non- Living Status: Still Living Brother Family Member Ethnicity: Non- Living Status: Still Living Sister Family Member Ethnicity: Non- Living Status: Still Living Father Family Member Ethnicity: Non- Living Status: Hx Family Cardiac Disorders: Yes (Father [place] in 50's) Hx Family Respiratory Disorders: Yes (Patient's father had heart attacks in his 50s) Hx Family Cancer: Yes (Lung, lymphoma) Hx Family GI Disorders: No Hx Family Endocrine Disorder: No Hx Family Neuromuscular Disorders: No Hx Family Neurologic Disorders: No Hx Family HEENT Disorders: No Hx Family Autoimmune Disorders: No Medications and Allergies DULoxetine [Cymbalta] 60 mg PO DAILY 05/23/16 [History] Lisinopril [Zestril] 40 mg PO DAILY 05/23/16 [History] TraZODone 200 mg PO HS 05/23/16 [History] hydroCHLOROthiazide [Hydrochlorothiazide] 25 mg PO DAILY 05/23/16 [History] lamoTRIgine [Lamictal] 100 mg PO HS 09/22/17 [History] Sulfamethoxazole/Trimeth DS [Bactrim Ds] 1 tab PO BID 04/18/18 [History] Adhesive Tape [Paper Tape] 1 each TP AD #1 tape 04/19/18 [Rx] Polyhexam Biguan/Gauze Bandage [Curity Amd 4"X4" Non-Woven] 2 each TP AD #120 sponge 04/19/18 [Rx] Polyhexam Biguan/Gauze Bandage [Curity Amd Packing Strips] 1 each TP AD #1 bottle 04/19/18 [Rx] 3 Allergy/AdvReac Type Severity Reaction Status Date / Time No Known Allergies Allergy Verified 04/18/18 22:41 Review of Systems All systems PM: reviewed and no additional remarkable complaints except as stated All systems PM: The remainder of the systems were reviewed and are negative General Surgery Exam Initial Vital Signs Temp Pulse Resp BP Pulse Ox 98.8 F 87 20 148/82 97 04/18/18 20:39 04/18/18 20:39 04/18/18 20:39 04/18/18 20:39 04/18/18 20:39 VITAL SIGNS: Reviewed. See [facility] GENERAL: In no apparent distress. HEENT: Normocephalic, atraumatic, pupils are equal and reactive, extraocular motions intact, oropharynx is pink and moist, there is no neck adenopathy or JVD noted. CHEST/RESPIRATORY: The thorax is free from signs of trauma. Lung sounds: clear to auscultation, normal respiratory effort CARDIAC: Regular rate and rhythm. Normal S1 and S2, without murmurs, gallops, or rubs. VASCULAR: No Edema. 2+ peripheral pulses. MUSCULOSKELETAL: Good range of motion of all major joints. Extremities without clubbing, cyanosis or edema. NEUROLOGIC EXAM: Alert and oriented x 3. Speech normal. Follows commands. PSYCHIATRIC: Mood normal. SKIN: aprox 9cm diameter area on the right buttock with erythema and induration noted; small area aprox 2-3 cm of fluctuance noted. There is a moderate amount of pink drainage on the bed and gown Exam Initial Vital Signs Temp Pulse Resp BP Pulse Ox 98.8 F 87 20 148/82 97 04/18/18 20:39 04/18/18 20:39 04/18/18 20:39 04/18/18 20:39 04/18/18 20:39 Results - Labs 04/19/18 04:23 04/19/18 04:23 Abnormal lab results RBC 3.66 M/mcL (3.82-4.97) L 04/19/18 04:23 Hgb 11.2 g/dL (11.5-15.4) L D 04/19/18 04:23 Hct 33.3 % (35.3-44.9) L 04/19/18 04:23 PT 12.4 Seconds (9.4-12.1) H 04/19/18 04:23 APTT 38.9 Seconds (26.0-36.0) H 04/19/18 04:23 Chloride 112 mEq/L (98-107) H 04/19/18 04:23 Creatinine 0.58 mg/dL (0.60-1.20) L 04/19/18 04:23 Calcium 8.2 mg/dL (8.6-10.3) L 04/19/18 04:23 Urine Clarity Cloudy (Clear) A 04/18/18 21:45 Ur Specific Adel 1.026 (1.010-1.025) H 04/18/18 21:45 Urine Protein 30 mg/dL (Neg-Trace) H 04/18/18 21:45 Urine Ketones Trace mg/dL (Negative) H 04/18/18 21:45 Urine Bilirubin Moderate (Negative) H 04/18/18 21:45 Urine Urobilinogen >=8.0 mg/dL (Normal) H 04/18/18 21:45 Ur Leukocyte Esterase Trace (Negative) H 04/18/18 21:45 Urine Microscopic WBC 5-15 per hpf (0-3) H 04/18/18 21:45 Ur Squamous Epith Cells Many per lpf (None-Few) H 04/18/18 21:45 Urine Bacteria Moderate per hpf (None-Few) H 04/18/18 21:45 Urine Yeast Few per hpf (None Seen) H 04/18/18 21:45 Ur Culture Indicated? NO. (NO) A 04/18/18 21:45 Diabetes panel 04/19/18 04/19/18 Range/Units 04:23 04:23 Sodium 141 (136-145) mEq/L Potassium 3.9 (3.5-5.1) mEq/L Chloride 112 H (98-107) mEq/L Carbon Dioxide 26 (23-29) mEq/L BUN 7 (6-20) mg/dL Creatinine 0.58 L (0.60-1.20) mg/dL Glucose 94 (70-105) mg/dL Hemoglobin A1c 5.3 ( - 5.6) % Calcium 8.2 L (8.6-10.3) mg/dL Calcium panel 04/19/18 Range/Units 04:23 Calcium 8.2 L (8.6-10.3) mg/dL Pituitary panel 04/19/18 Range/Units 04:23 Sodium 141 (136-145) mEq/L Potassium 3.9 (3.5-5.1) mEq/L Chloride 112 H (98-107) mEq/L Carbon Dioxide 26 (23-29) mEq/L BUN 7 (6-20) mg/dL Creatinine 0.58 L (0.60-1.20) mg/dL Glucose 94 (70-105) mg/dL Calcium 8.2 L (8.6-10.3) mg/dL Adrenal panel 04/19/18 Range/Units 04:23 Sodium 141 (136-145) mEq/L Potassium 3.9 (3.5-5.1) mEq/L Chloride 112 H (98-107) mEq/L Carbon Dioxide 26 (23-29) mEq/L BUN 7 (6-20) mg/dL Creatinine 0.58 L (0.60-1.20) mg/dL Glucose 94 (70-105) mg/dL Calcium 8.2 L (8.6-10.3) mg/dL All other labs normal. - Imaging CT scan - abdomen: report reviewed CT scan - pelvis: report reviewed Procedures: General Surgery - Abscess I/D Additional comments: ABSCESS INCISION AND DRAINAGE NOTE INDICATION: Abscess manifested as a tender, swollen fluctuant mass in the superficial subcutaneous tissue. INFORMED CONSENT: The risks and benefits of the procedure including incomplete drainage, scarring, infection and bleeding was explained and the patient verbalized their understanding and wished to proceed with the procedure. PROCEDURE: The area of greatest fluctuance was identified, prepped, and draped in a sterile fashion. Local anesthetic (10 MLs of 2% lidocaine) was introduced subcutaneously over the area of greatest fluctuance. A linear incision was then made over the area of greatest fluctuance, with immediate return of a small -moderate amount of purulent material. The wound was explored with a hemostat to break up loculations and irrigated with 40MLs saline solution. Once the wound was explored, cleaned, and irrigated, 1/4 inch iodoform gauze packing was placed loosely in the wound. A dressing was then applied. FINDINGS: Purulent drainage. EBL: <5 mL COMPLICATIONS: None. Signature: Carley Bonds APRN, DEPARTMENT HELPER-C Consult Discharge Plan - Plan Instructions: Methicillin Resistant Staphylococcus Aureus (DC), Abscess (GEN) Additional Instructions: Daily wound care: Remove dressing and packing. Shower with antibacterial soap. Pack with 1/4 iodoform gauze 04/20-01/2018, and then switch to 1/4 plain packing. Cover with a dry dressing, tape to secure (dressing supplies RX has been transmitted to patient pharmacy). Referrals: NONE,PCP [Primary Care Provider] - Prescriptions: Adhesive Tape [Paper Tape] 1 each TP AD #1 tape Polyhexam Biguan/Gauze Bandage [Curity Amd 4"X4" Non-Woven] 2 each TP AD #120 sponge Polyhexam Biguan/Gauze Bandage [Curity Amd Packing Strips] 1 each TP AD #1 bottle <David Mata J - Last Filed: 04/19/18 14:33> Date of Encounter: 04/19/18 Review of Systems All systems PM: The remainder of the systems were reviewed and are negative General Surgery Exam Initial Vital Signs Temp Pulse Resp BP Pulse Ox 98.8 F 87 20 148/82 97 04/18/18 20:39 04/18/18 20:39 04/18/18 20:39 04/18/18 20:39 04/18/18 20:39 Exam Initial Vital Signs Temp Pulse Resp BP Pulse Ox 98.8 F 87 20 148/82 97 04/18/18 20:39 04/18/18 20:39 04/18/18 20:39 04/18/18 20:39 04/18/18 20:39 Results - Labs 04/19/18 04:23 04/19/18 04:23 Abnormal lab results RBC 3.66 M/mcL (3.82-4.97) L 04/19/18 04:23 Hgb 11.2 g/dL (11.5-15.4) L D 04/19/18 04:23 Hct 33.3 % (35.3-44.9) L 04/19/18 04:23 PT 12.4 Seconds (9.4-12.1) H 04/19/18 04:23 APTT 38.9 Seconds (26.0-36.0) H 04/19/18 04:23 Chloride 112 mEq/L (98-107) H 04/19/18 04:23 Creatinine 0.58 mg/dL (0.60-1.20) L 04/19/18 04:23 Calcium 8.2 mg/dL (8.6-10.3) L 04/19/18 04:23 Urine Clarity Cloudy (Clear) A 04/18/18 21:45 Ur Specific Adel 1.026 (1.010-1.025) H 04/18/18 21:45 Urine Protein 30 mg/dL (Neg-Trace) H 04/18/18 21:45 Urine Ketones Trace mg/dL (Negative) H 04/18/18 21:45 Urine Bilirubin Moderate (Negative) H 04/18/18 21:45 Urine Urobilinogen >=8.0 mg/dL (Normal) H 04/18/18 21:45 Ur Leukocyte Esterase Trace (Negative) H 04/18/18 21:45 Urine Microscopic WBC 5-15 per hpf (0-3) H 04/18/18 21:45 Ur Squamous Epith Cells Many per lpf (None-Few) H 04/18/18 21:45 Urine Bacteria Moderate per hpf (None-Few) H 04/18/18 21:45 Urine Yeast Few per hpf (None Seen) H 04/18/18 21:45 Ur Culture Indicated? NO. (NO) A 04/18/18 21:45 Diabetes panel 04/19/18 04/19/18 Range/Units 04:23 04:23 Sodium 141 (136-145) mEq/L Potassium 3.9 (3.5-5.1) mEq/L Chloride 112 H (98-107) mEq/L Carbon Dioxide 26 (23-29) mEq/L BUN 7 (6-20) mg/dL Creatinine 0.58 L (0.60-1.20) mg/dL Glucose 94 (70-105) mg/dL Hemoglobin A1c 5.3 ( - 5.6) % Calcium 8.2 L (8.6-10.3) mg/dL Calcium panel 04/19/18 Range/Units 04:23 Calcium 8.2 L (8.6-10.3) mg/dL Pituitary panel 04/19/18 Range/Units 04:23 Sodium 141 (136-145) mEq/L Potassium 3.9 (3.5-5.1) mEq/L Chloride 112 H (98-107) mEq/L Carbon Dioxide 26 (23-29) mEq/L BUN 7 (6-20) mg/dL Creatinine 0.58 L (0.60-1.20) mg/dL Glucose 94 (70-105) mg/dL Calcium 8.2 L (8.6-10.3) mg/dL Adrenal panel 04/19/18 Range/Units 04:23 Sodium 141 (136-145) mEq/L Potassium 3.9 (3.5-5.1) mEq/L Chloride 112 H (98-107) mEq/L Carbon Dioxide 26 (23-29) mEq/L BUN 7 (6-20) mg/dL Creatinine 0.58 L (0.60-1.20) mg/dL Glucose 94 (70-105) mg/dL Calcium 8.2 L (8.6-10.3) mg/dL All other labs normal. - Attending Attestation patient seen and examined; I have reviewed all labs, imaging, and documentation ; i agree with the above assessment and plan.
--- NOTE | 2018-04-19 12:47 | Electrocardiograph Report ---
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
[2018-04-20] MEDS: *HR* OxyCODONE/APAP 10/325 TABLET PO PRN ×5 (00:19→21:49)
[2018-04-20 04:15] LABS: Hematocrit 34.9 % (35.3-44.9); Hemoglobin 11.5 g/dL (11.5-15.4); Mean Corpuscular Hemoglobin 30.9 pg (28.0-33.3); Mean Corpuscular Volume 93.8 fL (83.0-100.0); Mean Platelet Volume 10.2 fL (9.4-12.4); Platelet Count 213 K/mcL (140-400); Red Blood Count 3.72 M/mcL (3.82-4.97); Red Cell Distribution Width 14.3 % (11.5-14.5)
[2018-04-20 04:32] LABS: BUN/Creatinine Ratio 14 (6-26); Blood Urea Nitrogen 10 mg/dL (6-20); Calcium 7.9 mg/dL (8.6-10.3); Carbon Dioxide 24 mEq/L (23-29); Chloride 116 mEq/L (98-107); Glucose 109 mg/dL (70-105); Osmolality,Calculated 298 (280-300); Potassium 3.7 mEq/L (3.5-5.1); Sodium 144 mEq/L (136-145); eGFR For Non-African Americans > 60 (> 60)
[2018-04-20] MEDS: *HR* Heparin 5,000 UNIT/ML VIAL SQ SCH ×3 (05:37→21:03)
[2018-04-20] MEDS: 0.9 % Sodium Chloride 1,000 ML IVC SCH ×2 (05:38→17:23)
[2018-04-20] MEDS: Piperacillin/Tazobactam 3.375 GM in 0.9 % Sodium Chloride Mini Bag 100 ML IVPB SCH ×3 (08:32→23:35)
[2018-04-20] MEDS: Lisinopril 20 MG TABLET PO SCH (08:32)
[2018-04-20] MEDS: lamoTRIgine 100 MG TABLET PO SCH (08:33)
[2018-04-20] MEDS ORDERED: Fluconazole 100 MG TABLET PO ONE (11:14)
--- NOTE | 2018-04-20 15:24 | Internal Med Progress Note ---
Hospitalist Progress Note - Encounter Date of Encounter: 04/20/18 Time of Encounter: 15:27 - Subjective Interval History: Seen and examined at bedside. Says she feels a little better. She is somewhat anxious and wants to go out to smoke. Says she would feel better if she can just have a cigarette. Reports some pain to right buttocks but overall improved. Also reports erythema and tenderness to bilateral groin and pubic area. She is agreeable to stay until cultures finalize - Exam Vitals: Temp Pulse Resp BP Pulse Ox 98.7 F 46 14 180/90 98 04/20/18 15:11 04/20/18 15:11 04/20/18 15:11 04/20/18 15:11 04/20/18 15:11 Exam: Vitals: Reviewed General: Well-developed white female lying in bed Skin: Large circumferential area of erythema of approximately 7 cm over her left gluteus with central ulceration draining yellowish bloody fluid, circumferentially tender to palpation exquisitely with firmness and no fluctuance detected. No foul odor. HEENT: Moist mucous membranes. No conjunctivae pallor. Neck: No lymphadenopathy. No JVD. Chest: Normal thoracic expansion. Normal breath sounds. Clear to auscultation. Heart: Normal S1 & S2; rhythmic. No rubs or murmurs. Abdomen: Non-distended, soft and non-tender to palpation. Erythema to bilateral groin and pubic area with tenderness Extremities: Right foot in a cast and left foot with hallux valgus. Neurological: Awake, alert and oriented to person, place and time. No focal deficits. Psych: Affect appropriate and coherent speech. - Assessment and Plan (1) Cellulitis and abscess of buttock Current Visit: Yes Status: Acute Assessment and Plan: recurrent; patient reported multiple abscesses to bilateral buttocks over the past 2 years. Presented with right buttock pain and fevers. ABD/pelvis CT Right paramedian gluteal region subcutaneous infected fluid/abscess with surrounding cellulitis. No elevated WBC, lactic acid normal. Unclear etiology of so many recurrences. Noted to have MRSA in the past. S/p I&D on 04/19/18 per General surgery. Cont IV vanco and zosyn until sensitivities returned. Cont local wound care (2) HTN (hypertension) Current Visit: Yes Status: Chronic Assessment and Plan: per hx. BP intermittently elevated; possibly secondary to acute pain. Cont home BP medication. Add PRN IV hydralazine. Monitor BP and titrate PRN (3) Abnormal urinalysis Current Visit: Yes Status: Acute Assessment and Plan: UA concerning for UTI. Continue ceftriaxone. Follow culture and narrow ATB accordingly. (4) Chronic pain Current Visit: No Status: Chronic Assessment and Plan: per hx. Use to follow with pain management but was fired as she was unable to make her most recent appointment. Will look into new pain management referral with Cristina. (5) Tobacco dependence Current Visit: Yes Status: Acute Assessment and Plan: cessation advised (6) Bradycardia Current Visit: Yes Status: Acute Assessment and Plan: with HRs in the 40s to 50s. Asymptomatic. Not on any teresa blocking agents. Continue to monitor on telemetry. Echocardiogram pending. (7) Tinea cruris Current Visit: Yes Status: Acute Assessment and Plan: Noted on 8/for exam. Oral fluconazole. DVT Prophylaxis: heparin - Time Spent with Patient Total time spent is greater than 50% in coordination of care (as documented) at patient's floor/unit and/or counseling patient: 25 - 35 minutes Plan of Care Discussed with: patient Internal Medicine: Result - Labs CBC & Chem 7: 04/20/18 03:44 04/20/18 03:44 Labs: Short CBC 04/20/18 Range/Units 03:44 WBC 4.2 L (4.3-11.1) K/mcL Hgb 11.5 (11.5-15.4) g/dL Hct 34.9 L (35.3-44.9) % Plt Count 213 (140-400) K/mcL [facility] 04/20/18 03:44 Sodium 144 Potassium 3.7 Chloride 116 H Carbon Dioxide 24 BUN 10 Creatinine 0.70 Glucose 109 H Calcium 7.9 L - ABG Interpretation ABG results: PT/INR, D-dimer PT 12.4 Seconds (9.4-12.1) H 04/19/18 04:23 Consult Discharge Plan - Plan Instructions: Methicillin Resistant Staphylococcus Aureus (DC), Abscess (GEN) Additional Instructions: Daily wound care: Remove dressing and packing. Shower with antibacterial soap. Pack with 1/4 iodoform gauze 04/20-01/2018, and then switch to 1/4 plain packing. Cover with a dry dressing, tape to secure (dressing supplies RX has been transmitted to patient pharmacy). Referrals: NONE,PCP [Primary Care Provider] - Prescriptions: Adhesive Tape [Paper Tape] 1 each TP AD #1 tape Polyhexam Biguan/Gauze Bandage [Curity Amd 4"X4" Non-Woven] 2 each TP AD #120 sponge Polyhexam Biguan/Gauze Bandage [Curity Amd Packing Strips] 1 each TP AD #1 bottle (2) HTN (hypertension) Qualifiers: Hypertension type: essential hypertension Qualified Code(s): I10 - Essential (primary) hypertension (4) Chronic pain Qualifiers: Chronic pain type: other chronic pain Qualified Code(s): G89.29 - Other chronic pain
[2018-04-20] MEDS: traZODone 50 MG TABLET PO SCH (21:04)
[2018-04-21] MEDS: 0.9 % Sodium Chloride 1,000 ML IVC SCH ×3 (02:52→11:34)
[2018-04-21] MEDS: *HR* OxyCODONE/APAP 10/325 TABLET PO PRN ×5 (04:10→23:01)
[2018-04-21 04:45] LABS: Hematocrit 36.4 % (35.3-44.9); Hemoglobin 12.3 g/dL (11.5-15.4); Mean Corpuscular HGB Conc 33.8 g/dL (31.6-35.5); Mean Corpuscular Hemoglobin 30.9 pg (28.0-33.3); Mean Corpuscular Volume 91.5 fL (83.0-100.0); Mean Platelet Volume 10.2 fL (9.4-12.4); Platelet Count 236 K/mcL (140-400); Red Blood Count 3.98 M/mcL (3.82-4.97); Red Cell Distribution Width 13.9 % (11.5-14.5)
[2018-04-21 04:57] LABS: BUN/Creatinine Ratio 10 (6-26); Blood Urea Nitrogen 6 mg/dL (6-20); Calcium 8.5 mg/dL (8.6-10.3); Carbon Dioxide 25 mEq/L (23-29); Chloride 112 mEq/L (98-107); Glucose 87 mg/dL (70-105); Osmolality,Calculated 291 (280-300); Potassium 3.8 mEq/L (3.5-5.1); Sodium 142 mEq/L (136-145); eGFR For Non-African Americans > 60 (> 60)
[2018-04-21] MEDS: *HR* Heparin 5,000 UNIT/ML VIAL SQ SCH ×3 (05:37→23:01)
[2018-04-21] MEDS: Lisinopril 20 MG TABLET PO SCH (09:14)
[2018-04-21] MEDS: lamoTRIgine 100 MG TABLET PO SCH (09:14)
[2018-04-21] MEDS: Piperacillin/Tazobactam 3.375 GM in 0.9 % Sodium Chloride Mini Bag 100 ML IVPB SCH ×3 (09:15→23:57)
[2018-04-21] MEDS: amLODIPine 5 MG TABLET PO SCH (10:13)
--- NOTE | 2018-04-21 15:31 | Internal Med Progress Note ---
Hospitalist Progress Note - Encounter Date of Encounter: 04/21/18 Time of Encounter: 09:00 - Subjective Interval History: Seen and examined at bedside. Says she feels overall better. Has some pain to right buttocks wound but significantly improved. No fevers or chills overnight. - Exam Vitals: Temp Pulse Resp BP Pulse Ox 98.5 F 57 15 150/79 95 04/21/18 14:29 04/21/18 14:29 04/21/18 14:29 04/21/18 14:29 04/21/18 14:29 Exam: Vitals: Reviewed General: Well-developed white female lying in bed Skin: right buttock dressing C/D/I HEENT: Moist mucous membranes. No conjunctivae pallor. Neck: No lymphadenopathy. No JVD. Chest: Normal thoracic expansion. Normal breath sounds. Clear to auscultation. Heart: Normal S1 & S2; rhythmic. No rubs or murmurs. Abdomen: Non-distended, soft and non-tender to palpation. Erythema to bilateral groin and pubic area with tenderness Extremities: Right foot in a cast and left foot with hallux valgus. Neurological: Awake, alert and oriented to person, place and time. No focal deficits. Psych: Affect appropriate and coherent speech. - Assessment and Plan (1) Cellulitis and abscess of buttock Current Visit: Yes Status: Acute Assessment and Plan: recurrent; patient reported multiple abscesses to bilateral buttocks over the past 2 years. Presented with right buttock pain and fevers. ABD/pelvis CT Right paramedian gluteal region subcutaneous infected fluid/abscess with surrounding cellulitis. No elevated WBC, lactic acid normal. Unclear etiology of so many recurrences. Noted to have MRSA in the past. S/p I&D on 04/19/18 per General surgery. Wound cx with gram-positive cocci. Cont IV vanco and zosyn until sensitivities returned. Cont local wound care (2) HTN (hypertension) Current Visit: Yes Status: Chronic Assessment and Plan: per hx. BP intermittently elevated; possibly secondary to acute pain. Cont home BP medication. Add PRN IV hydralazine. Monitor BP and titrate PRN (3) Abnormal urinalysis Current Visit: Yes Status: Acute Assessment and Plan: UA concerning for UTI. Continue ceftriaxone. Follow culture and narrow ATB accordingly. (4) Chronic pain Current Visit: No Status: Chronic Assessment and Plan: per hx. Use to follow with pain management but was fired as she was unable to make her most recent appointment. Will look into new pain management referral with Cristina. (5) Tobacco dependence Current Visit: Yes Status: Acute Assessment and Plan: cessation advised (6) Bradycardia Current Visit: Yes Status: Acute Assessment and Plan: with HRs in the 40s to 50s. Asymptomatic. Not on any teresa blocking agents. Continue to monitor on telemetry. Echocardiogram pending. (7) Tinea cruris Current Visit: Yes Status: Acute Assessment and Plan: Noted on 8/for exam. Oral fluconazole. - Time Spent with Patient Total time spent is greater than 50% in coordination of care (as documented) at patient's floor/unit and/or counseling patient: Internal Medicine: Result - Labs CBC & Chem 7: 04/21/18 04:03 04/21/18 04:03 Labs: Short CBC 04/21/18 Range/Units 04:03 WBC 5.0 (4.3-11.1) K/mcL Hgb 12.3 (11.5-15.4) g/dL Hct 36.4 (35.3-44.9) % Plt Count 236 (140-400) K/mcL [facility] 04/21/18 04:03 Sodium 142 Potassium 3.8 Chloride 112 H Carbon Dioxide 25 BUN 6 Creatinine 0.60 Glucose 87 Calcium 8.5 L - ABG Interpretation ABG results: PT/INR, D-dimer PT 12.4 Seconds (9.4-12.1) H 04/19/18 04:23 Consult Discharge Plan - Plan Instructions: Methicillin Resistant Staphylococcus Aureus (DC), Abscess (GEN) Additional Instructions: Daily wound care: Remove dressing and packing. Shower with antibacterial soap. Pack with 1/4 iodoform gauze 04/20-01/2018, and then switch to 1/4 plain packing. Cover with a dry dressing, tape to secure (dressing supplies RX has been transmitted to patient pharmacy). Referrals: NONE,PCP [Primary Care Provider] - Prescriptions: Adhesive Tape [Paper Tape] 1 each TP AD #1 tape Polyhexam Biguan/Gauze Bandage [Curity Amd 4"X4" Non-Woven] 2 each TP AD #120 sponge Polyhexam Biguan/Gauze Bandage [Curity Amd Packing Strips] 1 each TP AD #1 bottle (2) HTN (hypertension) Qualifiers: Hypertension type: essential hypertension Qualified Code(s): I10 - Essential (primary) hypertension (4) Chronic pain Qualifiers: Chronic pain type: other chronic pain Qualified Code(s): G89.29 - Other chronic pain
[2018-04-21] MEDS: traZODone 50 MG TABLET PO SCH (23:02)
[2018-04-22] MEDS: *HR* OxyCODONE/APAP 10/325 TABLET PO PRN ×3 (04:44→13:59)
[2018-04-22] MEDS: *HR* Heparin 5,000 UNIT/ML VIAL SQ SCH ×2 (05:31→13:58)
[2018-04-22] MEDS: amLODIPine 5 MG TABLET PO SCH (09:17)
[2018-04-22] MEDS: lamoTRIgine 100 MG TABLET PO SCH (09:18)
[2018-04-22] MEDS: Lisinopril 20 MG TABLET PO SCH (09:18)
[2018-04-22] MEDS: Piperacillin/Tazobactam 3.375 GM in 0.9 % Sodium Chloride Mini Bag 100 ML IVPB SCH (10:10)
[2018-04-22 15:09] VITALS: BP 138/74
--- NOTE | 2018-04-22 16:06 | Discharge Summary ---
- NOTES TO OUTPATIENT PROVIDER Notes to Outpatient Provider: routine hospital follow-up Orders not resulted at time of discharge: Pending orders 04/19/18 14:00 Culture,Anaerobic [RM] Stat Gram Stain [RM] Stat 04/22/18 04:04 BMP [Basic Metabolic Panel] AM 0400 Complete Blood Count w/o Diff [HEME] AM 0400 04/22/18 23:00 Vancomycin,Trough Timed 04/23/18 04:00 BMP [Basic Metabolic Panel] AM 0400 Complete Blood Count w/o Diff [HEME] AM 0400 04/24/18 04:00 BMP [Basic Metabolic Panel] AM 0400 Complete Blood Count w/o Diff [HEME] AM 0400 04/25/18 04:00 BMP [Basic Metabolic Panel] AM 0400 Complete Blood Count w/o Diff [HEME] AM 0400 Date of Encounter: 04/22/18 Time of Encounter: 16:03 - Discharge Diagnosis (1) Cellulitis and abscess of buttock Priority: Primary Status: Acute Assessment and Plan: recurrent; patient reported multiple abscesses to bilateral buttocks over the past 2 years. Presented with right buttock pain and fevers. ABD/pelvis CT Right paramedian gluteal region subcutaneous infected fluid/abscess with surrounding cellulitis. No elevated WBC, lactic acid normal. Unclear etiology of so many recurrences. Noted to have MRSA in the past. S/p I&D on 04/19/18 per General surgery. Treated with IV vanco and zosyn. Wound cultures with MRSA. Blood cultures negative. Discharge home on Bactrim twice a day for 2 weeks. Patient reported will be able to do daily dressing changes. Chlorhexidine gluconate be been and nasal bactracin recommended. No need to follow-up with infectious disease unless abscess recurs. (2) HTN (hypertension) Priority: Primary Status: Chronic Assessment and Plan: per hx. BP intermittently elevated; possibly secondary to acute pain. Cont home BP medication. Qualifiers: Hypertension type: essential hypertension Qualified Code(s): I10 - Essential (primary) hypertension (3) Abnormal urinalysis Priority: Primary Status: Acute Assessment and Plan: UA concerning for UTI. Urine cx not completed. Received 4 doses IV ceftriaxone. (4) Chronic pain Priority: Primary Status: Chronic Assessment and Plan: per hx. acute on chronic; has chronic back pain now with acute pain secondary to glioma abscess. Use to follow with pain management but was fired as she was unable to make her most recent appointment. Referral made to pain management at [facility] Qualifiers: Chronic pain type: other chronic pain Qualified Code(s): G89.29 - Other chronic pain (5) Tobacco dependence Priority: Secondary Status: Acute Assessment and Plan: cessation advised (6) Bradycardia Priority: Primary Status: Acute Assessment and Plan: with HRs in the 40s to 50s. Asymptomatic. Not on any teresa blocking agents. TTE with preserved EF, no valvular dysfunction, no wall motion abnormalities. Heart rate improved to 50s and 60s at discharge. Recommend outpatient follow- up with PCP (7) Tinea cruris Priority: Primary Status: Acute Assessment and Plan: to bilateral groins and pubic area. Discussed with ID who suspects combination of fungal and yeast. Discharge home on oral fluconazole and topical nystatin powder. Hospital course: Please see assessment and plan for Hospital course Discharge discussed with: patient (Seen and examined at bedside multiple times on day of discharge. Says she feels better and would like to go home. I discussed case with Dr. Ramírez who would like patient to stay another 24 hours for IV ATB however patient is insisting on going home. Advised on chlorhexidine gluconate bathing and back trace in for nares. ) - Time Spent with Patient Total time spent providing and/or coordinating discharge services: - Discharge Medications Prescriptions: OxyCODONE/APAP 10/325 [Percocet 10/325 MG] 1 each PO Q6HR PRN 7 Days #28 tablet PRN Reason: pain Adhesive Tape [Paper Tape] 1 each TP AD #1 tape Fluconazole [Diflucan] 200 mg PO DAILY #10 tab Mupirocin Calcium [Bactroban Nasal] 1 gm NS BID #1 oint...g. Nystatin POWDER [Nystop] 1 appl TP TID #30 gm Polyhexam Biguan/Gauze Bandage [Curity Amd 4"X4" Non-Woven] 2 each TP AD #120 sponge Polyhexam Biguan/Gauze Bandage [Curity Amd Packing Strips] 1 each TP AD #1 bottle Sulfamethoxazole/Trimeth DS [Bactrim Ds] 1 tab PO BID #28 tablet Home Medications: DULoxetine [Cymbalta] 60 mg PO DAILY 05/23/16 [History] Lisinopril [Zestril] 40 mg PO DAILY 05/23/16 [History] TraZODone 200 mg PO HS 05/23/16 [History] hydroCHLOROthiazide [Hydrochlorothiazide] 25 mg PO DAILY 05/23/16 [History] lamoTRIgine [Lamictal] 100 mg PO HS 09/22/17 [History] Adhesive Tape [Paper Tape] 1 each TP AD #1 tape 04/19/18 [Rx] Polyhexam Biguan/Gauze Bandage [Curity Amd 4"X4" Non-Woven] 2 each TP AD #120 sponge 04/19/18 [Rx] Polyhexam Biguan/Gauze Bandage [Curity Amd Packing Strips] 1 each TP AD #1 bottle 04/19/18 [Rx] Fluconazole [Diflucan] 200 mg PO DAILY #10 tab 04/22/18 [Rx] Mupirocin Calcium [Bactroban Nasal] 1 gm NS BID #1 oint...g. 04/22/18 [Rx] Nystatin POWDER [Nystop] 1 appl TP TID #30 gm 04/22/18 [Rx] OxyCODONE/APAP 10/325 [Percocet 10/325 MG] 1 each PO Q6HR PRN 7 Days #28 tablet 04/22/18 [Rx] Sulfamethoxazole/Trimeth DS [Bactrim Ds] 1 tab PO BID #28 tablet 04/22/18 [Rx] Allergies/Adverse Reactions: 3 Allergy/AdvReac Type Severity Reaction Status Date / Time No Known Allergies Allergy Verified 04/18/18 22:41 Date of admission: 04/19/18 00:41 Primary care physician: PCP NONE Consults: 04/19/18 00:45 Consult to Surgery [CONS] Routine Consulting Provider: Surgery [facility] Reason for Consult: 52 year old woman with recurrent abscess now with a large left intragluteal abscess requiring eval for drainage. Call Completed: No 04/22/18 10:30 Consult to Infectious Diseases [CONS] Routine Consulting Provider: Infectious Disease Cristina Reason for Consult: Recurrent gluteal abscess Call Completed: Yes 04/22/18 10:44 Consult to Track Repair Person [CONS] Routine Reason for SW Consult: to obtain wound care supplies at discharge Discharging clinician: Jina Bridges Anticipated date of discharge: 04/22/18 - Constitutional Vitals: Temp Pulse Resp BP Pulse Ox 98.2 F 59 16 138/74 94 04/22/18 11:10 04/22/18 15:07 04/22/18 15:07 04/22/18 15:07 04/22/18 15:07 General appearance: Present: A&O X 3, pleasant, no acute distress - Head Head exam: Present: atraumatic, normocephalic - Eye Eye exam: Present: PERRL, conjuntiva pink, sclera anicteric Pupils: Present: PERRL - Neck Neck exam general surgery: Present: supple, trachea midline. Absent: lymphadenopathy - Respiratory Respiratory exam: Present: CTAB. Absent: accessory muscle use, rales, rhonchi, wheezes - Cardiovascular Cardiovascular exam: Present: RRR, +S1, +S2. Absent: diastolic murmur, gallop, rubs, systolic murmur - GI/Abdominal GI/Abdominal exam: Present: normal bowel sounds, soft, no peritoneal signs. Absent: distended, tenderness - Additional comments: Bilateral groin and pubic area slightly improved tinea and yeast infection area , no drainage. - Extremities Exam Extremities exam: Present: warm, radial pulses palpable and symmetrical. Absent : calf tenderness, cyanotic, pedal edema - Neurological Exam Neurological exam: Present: CN II-XII intact, oriented X3, no focal deficits. Absent: pronater drift, facial droop, speech deficit - Skin Skin exam: Present: dry. Absent: intact (Right buttocks status post IND site with improving erythema and moderate purulent drainage) - Patient Status Disposition: Home, Self-Care Condition: Good Functional capacity at discharge: independent ambulation Overall status at discharge: patient is progressing back to baseline - Discharge Instructions Instructions: Methicillin Resistant Staphylococcus Aureus (DC), Abscess (GEN), Sulfamethoxazole/Trimethoprim (By mouth), Fluconazole (By mouth), Nystatin (On the skin) Follow Up With: Med Linder DO [Resident] - 05/03/18 10:30 am (New patient and hospital follow up appointment. Patient will receive packet in mail and needs to fill out all forms and bring to appointment. Also, medication list, drivers license , insurance card and if any co pay. If patient needs to reschedule needs to do so 24 hour in advance or maybe discharged from practice.) Michael Beach, DO [Partnered Physician] - (Please call the office within one week to see if they receive referral from the hospital. If not, you may need to obtain referral from your primary care physician.) NONE,PCP [Primary Care Provider] - (Please call [phone] to find physicians accepting new patients) Additional Instructions: Daily wound care: Remove dressing and packing. Shower with antibacterial soap. Pack with 1/4 iodoform gauze 04/20-01/2018, and then switch to 1/4 plain packing. Cover with a dry dressing, tape to secure (dressing supplies RX has been transmitted to patient pharmacy). - Diet and Activity Activity: increase activity as tolerated Diet: advance to your usual diet
[2018-04-22] MEDS ORDERED: Aminoglycoside Consult 1 EACH MC ONE (17:31)
--- NOTE | 2018-04-22 23:56 | Infectious Disease Consult ---
Date of Encounter: 04/23/18 Time of Encounter: 23:55 Assessment and Plan (1) Candidal intertrigo Status: Acute Assessment and plan: start diflucan 200 mg po daily x 14 days start nystatin powder apply bid (2) Intertrigo labialis Status: Acute (3) Depression Status: Acute Qualifiers: Depression Type: major depressive disorder Major depression recurrence: recurrent Active/Remission status: in full remission Qualified Code(s): F33.42 - Major depressive disorder, recurrent, in full remission (4) Abscess, gluteal, right Status: Acute Assessment and plan: s/p I&D on 04/19 causative organism MRSA susceptible to Bactrim, Doxy, Clinda currently on vancomycin on d/c consider switching to oral bactrim to finish a 14 day course As for the recurrence of MRSA skin infection consider chlorohexidine bath 3 x in one week and bactroban intranasal x 5 days if symptoms recur patient to follow up with me in clinic for furthe reval patient advised and educated on proper skin hygiene and keeping skin dry and changing clothes frequently (5) Cellulitis and abscess of buttock Status: Acute (6) Tobacco dependence Status: Acute (7) HTN (hypertension) Status: Chronic Qualifiers: Hypertension type: essential hypertension Qualified Code(s): I10 - Essential (primary) hypertension Infectious Disease HPI - Data of Consult Patient: new to practice Consult date: 04/22/18 Requesting Physician: Babatunde Bocanegra MD Primary Care Provider: PCP NONE - Consult Narrative Reason for consult: MRSA abscess History of present illness: Ms. Christianson is a 52 year old female who presented to [place] ED on 04/18 with gluteal abscess, we are consulted on 04/22 for antibiotics recommendations. patient is a 52 year old woman with past medical history mentioned below with recurrent MRSA skin abscesses. Patient apparently gets them on her legs, butt, axillary and face at times. she has received multiple courses of antibiotics. patient denies digging them or itching. patient lives at home with a dog and does not work. she has no skin condition that she knows off. she does have some psychiatric issues. patient does smoke but denies IVDU. patient not sexually active for the last 3 years. in October 2017 for an MRSA left gluteal abscess that required incision and drainage who presents now complaining of 3 days of worsening right gluteal swelling that started off as a small pimple that she did not pop however progressed in size with significant redness, swelling and exquisite pain and ultimately opening up and ulceration from which she has been having incessant bleeding and drainage. He has been having subjective fever and chills as well as generalized malaise. She denies other symptoms such as chest pain, abdominal pain, diarrhea but she has felt nauseated. Since admission, she has been afebrile. No tachycardia. presenting WBC of 6. rest of the labs WNL. blood cultures obtained on 04/[address] abdomen/pelvis reveals: 1. Right paramedian gluteal region subcutaneous infected fluid/abscess with surrounding cellulitis. The fluid is estimated at about 1.8 x 3.5 x 4.0 cm. Margins are difficult to outline this could be overestimated. 2. No acute intra-abdominal/intrapelvic process. 3. Cholelithiasis with stones up to 1.5 cm. patient had an I&D and intra op cultures grew MRSA she has been on vancomycin since admission currently she feels great and has no complaints and eager to go home CC: Babatunde Bocanegra MD Past Med Surg Social Fam HX - Past Medical History Medical history: hypertension Psychiatric history: anxiety - Past Surgical History Surgical History: other, hysterectomy Additional surgical history: 3 foot surgeries - Social History Smoking Status: Current every day smoker Smokeless Tobacco Status: No Alcohol use: none Drug use: none - Family History Mother Family Member Ethnicity: Non- Living Status: Still Living Brother Family Member Ethnicity: Non- Living Status: Still Living Sister Family Member Ethnicity: Non- Living Status: Still Living Father Family Member Ethnicity: Non- Living Status: Hx Family Cardiac Disorders: Yes (Father [place] in 50's) Hx Family Respiratory Disorders: Yes (Patient's father had heart attacks in his 50s) Hx Family Cancer: Yes (Lung, lymphoma) Hx Family GI Disorders: No Hx Family Endocrine Disorder: No Hx Family Neuromuscular Disorders: No Hx Family Neurologic Disorders: No Hx Family HEENT Disorders: No Hx Family Autoimmune Disorders: No Infectious Disease-CN:Meds DULoxetine [Cymbalta] 60 mg PO DAILY 05/23/16 [History] Lisinopril [Zestril] 40 mg PO DAILY 05/23/16 [History] TraZODone 200 mg PO HS 05/23/16 [History] hydroCHLOROthiazide [Hydrochlorothiazide] 25 mg PO DAILY 05/23/16 [History] lamoTRIgine [Lamictal] 100 mg PO HS 09/22/17 [History] Adhesive Tape [Paper Tape] 1 each TP AD #1 tape 04/19/18 [Rx] Polyhexam Biguan/Gauze Bandage [Curity Amd 4"X4" Non-Woven] 2 each TP AD #120 sponge 04/19/18 [Rx] Polyhexam Biguan/Gauze Bandage [Curity Amd Packing Strips] 1 each TP AD #1 bottle 04/19/18 [Rx] Fluconazole [Diflucan] 200 mg PO DAILY #10 tab 04/22/18 [Rx] Mupirocin Calcium [Bactroban Nasal] 1 gm NS BID #1 oint...g. 04/22/18 [Rx] Nystatin POWDER [Nystop] 1 appl TP TID #30 gm 04/22/18 [Rx] OxyCODONE/APAP 10/325 [Percocet 10/325 MG] 1 each PO Q6HR PRN 7 Days #28 tablet 04/22/18 [Rx] Sulfamethoxazole/Trimeth DS [Bactrim Ds] 1 tab PO BID #28 tablet 04/22/18 [Rx] 3 Allergy/AdvReac Type Severity Reaction Status Date / Time No Known Allergies Allergy Verified 04/18/18 22:41 Review of systems: 10 point ROS done, negative other for what's mentioned in the HPI Exam - Constitutional Vitals: Temp Pulse Resp BP Pulse Ox 98.2 F 59 16 138/74 94 04/22/18 11:10 04/22/18 15:07 04/22/18 15:07 04/22/18 15:07 04/22/18 15:07 General appearance: cooperative, no acute distress, no febrile - Head Head exam: Present: atraumatic, normocephalic - Eye Eye exam: Present: EOMI, PERRL, sclera anicteric Additional comments: no conjunctival h emorrhage - ENT ENT exam: Present: mucous membranes moist - Neck Neck exam: Present: full ROM. Absent: meningismus - Respiratory Respiratory exam: Present: CTAB. Absent: rhonchi, wheezes - Cardiovascular Cardiovascular exam: Present: RRR, +S1, +S2. Absent: systolic murmur - GI/Abdominal GI/Abdominal exam: Present: normal bowel sounds, soft. Absent: tenderness - Rectal Additional comments: buttock abscess s/p I&D with erythema and warm to touch. packed no active drainage - Extremities Exam Extremities exam: Present: full ROM Additional comments: right foot in an unna boot - Neurological Exam Neurological exam: Present: alert, oriented X3 - Psychiatric Psychiatric exam: Present: normal affect, normal mood - Skin Additional comments: has a yeast infection in the inguinal area that is pretty impressive. scars from previous mrsa abscesses on bilateral lower extremities and buttock Infectious Disease CN: Results - Labs CBC & Chem 7: 04/21/18 04:03 04/21/18 04:03 Cultures: Cultures 04/19/18 14:00 Gram Stain - Preliminary Aspirate 04/19/18 14:00 Wound Culture - Final Buttock Methicillin Resistant S.aureus Consult Discharge Plan - Plan Instructions: Sulfamethoxazole/Trimethoprim (By mouth), Nystatin (On the skin) , Fluconazole (By mouth), Methicillin Resistant Staphylococcus Aureus (DC), Abscess (GEN) Additional Instructions: Daily wound care: Remove dressing and packing. Shower with antibacterial soap. Pack with 1/4 iodoform gauze 04/20-01/2018, and then switch to 1/4 plain packing. Cover with a dry dressing, tape to secure (dressing supplies RX has been transmitted to patient pharmacy). Referrals: Med Linder DO [Resident] - 05/03/18 10:30 am (New patient and hospital follow up appointment. Patient will receive packet in mail and needs to fill out all forms and bring to appointment. Also, medication list, drivers license , insurance card and if any co pay. If patient needs to reschedule needs to do so 24 hour in advance or maybe discharged from practice.) Michael Beach DO [Partnered Physician] - 04/23/18 8:00 am (Please call the office within one week to see if they receive referral from the hospital. If not, you may need to obtain referral from your primary care physician.) Carley Bonds CNP [Advanced Practice Nurse] - 04/26/18 9:15 am Prescriptions: OxyCODONE/APAP 10/325 [Percocet 10/325 MG] 1 each PO Q6HR PRN 7 Days #28 tablet PRN Reason: pain Adhesive Tape [Paper Tape] 1 each TP AD #1 tape Fluconazole [Diflucan] 200 mg PO DAILY #10 tab Mupirocin Calcium [Bactroban Nasal] 1 gm NS BID #1 oint...g. Nystatin POWDER [Nystop] 1 appl TP TID #30 gm Polyhexam Biguan/Gauze Bandage [Curity Amd 4"X4" Non-Woven] 2 each TP AD #120 sponge Polyhexam Biguan/Gauze Bandage [Curity Amd Packing Strips] 1 each TP AD #1 bottle Sulfamethoxazole/Trimeth DS [Bactrim Ds] 1 tab PO BID #28 tablet
== END 2018-04-22 17:32 | disposition home or self-care (01) | DRG 581 ==
LOC: EMEROO 20:38 → 3ANU 20:38
PROVIDERS: ADMIT Internal Medicine; ATTEND Internal Medicine

== ENCOUNTER 2021-01-04 10:10 | Inpatient (IN) ==
[2021-01-04] MEDS ORDERED: Naloxone 0.4 MG/ML INJ IVP PRN (10:44)
[2021-01-04] MEDS ORDERED: Ondansetron 4 MG/2 ML VIAL IVP PRN (10:44)
[2021-01-04] MEDS ORDERED: Isovue-370 500 ML BOTTLE IVP ONE (10:46)
[2021-01-04] MEDS ORDERED: Acetaminophen 325 MG TABLET PO PRN (10:48)
[2021-01-04] MEDS ORDERED: *HR* OxyCODONE Immed Rel 5 MG TABLET PO PRN (10:48)
[2021-01-04] MEDS ORDERED: Vancomycin 0 MG in 0.9 % Sodium Chloride 250 ML IVPB SCH (11:00)
[2021-01-04] MEDS ORDERED: Vancomycin 1,250 MG/262.5 ML IV.SOLN IVPB ONE (11:27)
[2021-01-04] MEDS: *HR* OxyCODONE Immed Rel 5 MG TABLET PO PRN ×2 (11:30→18:03)
[2021-01-04 12:39] LABS: Basophils # 0.1 K/mcL (0.0-0.2); Basophils % 0.3 %; Eosinophils # 0.1 K/mcL (0.0-0.6); Eosinophils % 0.3 %; Hemoglobin 14.1 g/dL (11.5-15.4); Immature Granulocytes % 0.6 % (0-4); Lymphocytes # 3.2 K/mcL (0.6-4.6); Lymphocytes % 18.2 %; Mean Corpuscular HGB Conc 32.8 g/dL (31.6-35.5); Mean Corpuscular Hemoglobin 31.1 pg (28.0-33.3); Mean Corpuscular Volume 94.9 fL (83.0-100.0); Mean Platelet Volume 9.5 fL (9.4-12.4); Monocytes # 0.9 K/mcL (0.0-1.3); Monocytes % 5.2 %; Neutrophils # 13.2 K/mcL (1.6-8.9); Platelet Count 224 K/mcL (140-400); Red Blood Count 4.53 M/mcL (3.82-4.97); Red Cell Distribution Width 15.6 % (11.5-14.5); Segmented Neutrophils % 75.4 %; White Blood Count 17.4 K/mcL (4.3-11.1)
[2021-01-04 12:51] LABS: INR 1.2; Prothrombin Time 13.3 Seconds (9.4-12.1)
[2021-01-04 13:02] LABS: BUN/Creatinine Ratio 22 (6-26); Blood Urea Nitrogen 13 mg/dL (6-20); Calcium 9.1 mg/dL (8.6-10.3); Carbon Dioxide 26 mEq/L (23-29); Chloride 102 mEq/L (98-107); Glucose 98 mg/dL (70-105); Osmolality,Calculated 282 (280-300); Potassium 3.7 mEq/L (3.5-5.1); Sodium 136 mEq/L (136-145); eGFR For African Americans > 60 (> 60); eGFR For Non-African Americans > 60 (> 60)
[2021-01-04 13:05] LABS: Estimated Average Glucose 111 mg/dl; Hemoglobin A1C 5.5 %
[2021-01-04] MEDS: Gabapentin 400 MG CAPSULE PO SCH ×2 (14:51→18:04)
[2021-01-04] MEDS: cefTRIAXone 1,000 MG in Water for inj. (sterile) 10 ML IVP SCH (14:51)
[2021-01-04] MEDS: *HR* FentaNYL (PF) 100 MCG/2 ML VIAL IVP PRN ×2 (15:00→19:50)
[2021-01-04] MEDS: ALPRAZolam 0.25 MG TABLET PO PRN (18:04)
[2021-01-05] MEDS: Vancomycin 1,250 MG/262.5 ML IV.SOLN IVPB SCH ×2 (00:25→12:36)
[2021-01-05] MEDS: Gabapentin 400 MG CAPSULE PO SCH ×3 (00:25→12:35)
[2021-01-05] MEDS: *HR* OxyCODONE Immed Rel 5 MG TABLET PO PRN ×2 (00:25→09:15)
[2021-01-05] MEDS: *HR* FentaNYL (PF) 100 MCG/2 ML VIAL IVP PRN (02:05)
[2021-01-05 03:22] LABS: Basophils # 0.1 K/mcL (0.0-0.2); Basophils % 0.4 %; Eosinophils # 0.2 K/mcL (0.0-0.6); Eosinophils % 1.8 %; Hematocrit 37.9 % (35.3-44.9); Immature Granulocytes % 0.5 % (0-4); Lymphocytes # 2.6 K/mcL (0.6-4.6); Lymphocytes % 20.8 %; Mean Corpuscular HGB Conc 32.5 g/dL (31.6-35.5); Mean Corpuscular Hemoglobin 31.1 pg (28.0-33.3); Mean Corpuscular Volume 95.9 fL (83.0-100.0); Mean Platelet Volume 9.9 fL (9.4-12.4); Monocytes # 0.9 K/mcL (0.0-1.3); Monocytes % 6.8 %; Neutrophils # 8.8 K/mcL (1.6-8.9); Platelet Count 202 K/mcL (140-400); Red Blood Count 3.95 M/mcL (3.82-4.97); Red Cell Distribution Width 15.6 % (11.5-14.5); Segmented Neutrophils % 69.7 %; White Blood Count 12.7 K/mcL (4.3-11.1)
[2021-01-05 03:24] LABS: Hemoglobin 12.3 g/dL (11.5-15.4)
[2021-01-05 03:33] LABS: BUN/Creatinine Ratio 25 (6-26); Blood Urea Nitrogen 16 mg/dL (6-20); Calcium 8.5 mg/dL (8.6-10.3); Carbon Dioxide 25 mEq/L (23-29); Chloride 104 mEq/L (98-107); Glucose 129 mg/dL (70-105); Osmolality,Calculated 285 (280-300); Potassium 3.7 mEq/L (3.5-5.1); Sodium 136 mEq/L (136-145); eGFR For African Americans > 60 (> 60); eGFR For Non-African Americans > 60 (> 60)
[2021-01-05] MEDS ORDERED: *HR* Enoxaparin 40 MG/0.4 ML SYRINGE SQ SCH (06:00)
[2021-01-05] MEDS ORDERED: lamoTRIgine 100 MG TABLET PO SCH (09:00)
[2021-01-05] MEDS ORDERED: amLODIPine 5 MG TABLET PO SCH (09:00)
[2021-01-05] MEDS ORDERED: lisinopriL 20 MG TABLET PO SCH (09:00)
[2021-01-05] MEDS: cefTRIAXone 1,000 MG in Water for inj. (sterile) 10 ML IVP SCH (09:14)
[2021-01-05] MEDS: ALPRAZolam 0.25 MG TABLET PO PRN (09:15)
[2021-01-05 10:42] VITALS: BP 159/77
[2021-01-05] MEDS ORDERED: Lactobacillus 1 EACH CAP.SPRINK PO SCH (11:00)
[2021-01-05] MEDS ORDERED: *HR* FentaNYL (PF) 100 MCG/2 ML VIAL IVP PRN (12:36)
== END 2021-01-05 16:30 | disposition home or self-care (01) | DRG 603 ==
LOC: 2ANU
PROVIDERS: ADMIT Student in an Organized Health Care Education/Training Program; ATTEND Student in an Organized Health Care Education/Training Program